=== PATIENT | male | born 1960 | race Caucasian/White ===

== ENCOUNTER 2018-01-11 09:11 | Outpatient (CLI) | payer BC, SELFPAY | END 2018-01-11 09:31 | PROVIDERS: PCP Family Medicine; Referring Provider Internal Medicine Interventional Cardiology; Visit Provider Internal Medicine Interventional Cardiology | DX: I48.91 Unspecified atrial fibrillation (principal) | CPT/HCPCS: 93005; 93010 ==

== ENCOUNTER 2018-03-12 10:54 | Outpatient (CLI) | payer BC, SELFPAY ==
--- NOTE | 2018-03-12 08:00 | DIABASSESS_ITS ---
DESCRIPTION/ASSESSMENT: Mr. Langford presents with referral for insulin instruction. His A1c has increased to 10.1 and has a goal of decreasing to 8. Mr. Langford states he does not want to initiate insulin today and he knows he can get his blood sugars down with lifestyle modifications and would like support for this today. Food Guidelines - Mr. Langford states he has cut his carbohydrate and sweets. He has cheese omelet for breakfast; 2 yogurt for lunch; regular supper with minimal carbohydrates. He may snack on yogurt, fruit and handful of nuts.His is supportive of his efforts and helps him with food choices. Physical Activity - Veto has started using the treadmill 4 days a week. He experiences leg weakness, especially during chores. He now receives help from his son, but does participate twice a day. Medication - Veto continues with Metformin. Monitoring - Veto has just started monitoring his blood sugars a couple times a day. Today fasting blood sugar 151mg/dl; 1 hour after 2 yogurts 210mg/dl. Risks/Related health history - he self reports afib but states his blood pressure is pretty good at 120/85-90. INTERVENTION: DSME is provided in the following AADE 7 areas based on patients interest and assessment of needs: Food Guidelines - reviewed diabetes food guide focused on sources, portions, distribution of carbohydrate as well as glycemic index considerations of some foods. Briefly reviewed mindful eating concepts. Physical Activity - encouraged treadmill work but to moderate if he feels queezy during it and if it increases his pain during chores. Encouraged him to break up the treadmill routine doing some in the evening as well. Medication - he declines insulin instruction at this time. Reviewed other medications available and encouraged him to be in touch if blood sugars are not mostly less than 200 throughout the day to review insulin initiation again. Monitoring - He will continue monitoring in relation to his food to assess impact of food on blood sugar. ACTION PLAN: Continue monitoring carbohydrate; distribute evenly and increase lower glycemic foods Monitor blood sugars to consistently be less than 180mg/dl and less than 130mg/dl before breakfast Distribute physical activity evenly through day to minimize leg weakness He will return in 4 weeks prior to his next Provider visit. Individual DSME/T ___0_ units billed TIME IN: 0900 OUT: 924 No DM group education series being offered at this time.
== END 2018-03-12 11:14 ==
PROVIDERS: PCP Family Medicine; Visit Provider Dietitian, Registered
DX: E11.9 Type 2 diabetes mellitus without complications (principal); Z79.4 Long term (current) use of insulin; Z71.3 Dietary counseling and surveillance

== ENCOUNTER 2018-04-01 10:34 | Outpatient (REF) | payer BC, SELFPAY ==
[2018-04-01 13:13] LABS: TSH (W/Ref FT4) 2.99 uIU/mL (0.358-3.74)
== END 2018-04-01 10:54 ==
LOC: LBN 10:34
PROVIDERS: PCP Family Medicine; Visit Provider Family Medicine
DX: I48.0 Paroxysmal atrial fibrillation (principal)
CPT/HCPCS: 84443

== ENCOUNTER 2018-04-09 00:11 | Outpatient (CLI) | payer BC, SELFPAY ==
--- NOTE | 2018-04-09 12:00 | DI.US_ITS ---
SYMPTOMS/DIAGNOSIS: PRESYNCOPE, R55 BILATERAL DUPLEX CAROTID ULTRASOUND: Duplex evaluation of the carotid circulation was performed according to the usual protocol. There is mild visible atheromatous plaque formation in the carotid bifurcations bilaterally. Flow velocities in common, internal and external carotid arteries are within normal limits bilaterally. There is bilateral antegrade vertebral flow. CONCLUSION: No evidence of a hemodynamically significant carotid stenosis.
--- NOTE | 2018-04-09 12:10 | MERGE_ITS ---
*[facility]* *[facility]* [address] [place] [address] Date of study: 04/09/2018 Transthoracic Echocardiography M-mode, complete 2D, complete spectral Doppler, and color Doppler *STUDY CONCLUSIONS* Impressions: The patient was in atrial fibrillation throughout study. This rhythm can interfere with accurate global and segmental wall motion analysis. Summary: 1. Left ventricle: The cavity size was normal. Wall thickness was increased in a pattern of mild LVH. Systolic function was mildly reduced. The estimated ejection fraction was 45-50%. Mild diffuse hypokinesis. 2. Right ventricle: The cavity size was at the upper limits of normal. Systolic function was mildly reduced. 3. Left atrium: The atrium was mildly dilated. 4. Aortic valve: Trileaflet; mildly thickened, moderately calcified leaflets. Valve mobility was restricted. Transvalvular velocity was increased. There was mild to moderate stenosis. Peak velocity (S): 2.1m/sec. VTI ratio of LVOT to aortic valve: 0.41. 5. Pulmonary arteries: Pulmonary systolic pressure was increased, in the range of 35mm Hg to 40mm Hg. 6. Inferior vena cava: The vessel was patent and normal in size. The respirophasic diameter changes were in the normal range (greater than or equal to 50%), consistent with normal central venous pressure. *PATIENT PRESENTATION* Height: 182.9cm ((72in) ) S/D Pressure: 131 / 79 Weight: 142.9kg ((314.3lb) ) BSA: 2.76m^2 Test start time: 12:20 PM. Test stop time: 01:30 PM. PERFORMING Unknown PERFORMING [facility] Rhona Young RT RobbyR)(CT), [facility] ORDERING Se Alva REFERRING Se Alva *PROCEDURE DATA* Procedure information: The patient was identified by two identifiers. This study was interpreted by [facility]. Pertinent images and digital data are archived for permanent storage and are available for subsequent review. Comparison was made to the study of 12/29/2014. Study status: Routine. Transthoracic echocardiography. M-mode, complete 2D, complete spectral Doppler, and color Doppler. A Transthoracic Echocardiogram was performed. Scanning was performed from the parasternal, apical, subcostal, and suprasternal notch acoustic windows. Images were obtained using an [id number] cardiac ultrasound machine. Image quality was adequate. Study completion: The patient tolerated the procedure well. There were no complications. History: PMH: Near syncope and collapse. *CARDIAC ANATOMY* Left ventricle: The cavity size was normal. Wall thickness was increased in a pattern of mild LVH. Systolic function was mildly reduced. The estimated ejection fraction was 45-50%. Mild diffuse hypokinesis. Aortic valve: Trileaflet; mildly thickened, moderately calcified leaflets. Valve mobility was restricted. Doppler: Transvalvular velocity was increased. There was mild to moderate stenosis. There was no significant regurgitation. VTI ratio of LVOT to aortic valve: 0.41. Valve area (VTI): 1.2cm^2. Indexed valve area (VTI): 0.4cm^2/m^2. Peak velocity ratio of LVOT to aortic valve: 0.4. Valve area (Vmax): 1.2cm^2. Indexed valve area (Vmax): 0.4cm^2/m^2. Mean velocity ratio of LVOT to aortic valve: 0.41. Valve area (Vmean): 1.2cm^2. Indexed valve area (Vmean): 0.4cm^2/m^2. Mean gradient (S): 10.2mm Hg. Peak gradient (S): 17.3mm Hg. Aorta: Aortic root: The aortic root was normal in size. Ascending aorta: The ascending aorta was normal in size. Mitral valve: Mildly thickened leaflets. Mobility was not restricted. Doppler: Transvalvular velocity was within the normal range. There was no evidence for stenosis. There was trivial regurgitation. Valve area by pressure half-time: 6.3cm^2. Indexed valve area by pressure half-time: 2.3cm^2/m^2. Peak gradient (D): 3.8mm Hg. Left atrium: The atrium was mildly dilated. Right ventricle: The cavity size was at the upper limits of normal. Systolic function was mildly reduced. Pulmonic valve: The pulmonary valve appears to be grossly normal. Doppler: Transvalvular velocity was within the normal range. There was no evidence for stenosis. There was no significant regurgitation. Tricuspid valve: Structurally normal valve. Doppler: Transvalvular velocity was within the normal range. There was no evidence for stenosis. There was mild regurgitation. Pulmonary artery: The main pulmonary artery was normal-sized. Pulmonary systolic pressure was increased, in the range of 35mm Hg to 40mm Hg. Right atrium: The atrium was dilated. Pericardium: There was no significant pericardial effusion. Systemic veins: Inferior vena cava: Well visualized. The vessel was patent and normal in size. The respirophasic diameter changes were in the normal range (greater than or equal to 50%), consistent with normal central venous pressure. Baseline ECG: Atrial fibrillation. Measurements Left ventricle Value Reference LV ID, ED, PLAX 5.6 cm 3.5 - 6.0 LV ID, ES, PLAX 3.9 cm 2.1 - 4.0 LV PW thickness, ED, PLAX 0.9 cm LV end-diastolic volume, 1-p A2C 95 ml LV ejection fraction, 1-p A2C 44 % LV end-diastolic volume, 1-p A4C 134 ml LV ejection fraction, 1-p A4C 48 % LV e', lateral 0.148 m/sec LV E/e', lateral 7 LV e', medial 0.116 m/sec LV E/e', medial 8 LV e', average 0.132 m/sec LV E/e', average 7 Ventricular septum Value Reference IVS thickness, ED, PLAX 1.1 cm LVOT Value Reference LVOT ID, A-P 2.0 cm LVOT area 3 cm^2 LVOT peak velocity, S 0.83 m/sec LVOT mean velocity, S 0.62 m/sec LVOT VTI, S 15.0 cm LVOT peak gradient, S 2.8 mm Hg LVOT mean gradient, S 1.7 mm Hg Stroke volume (SV), LVOT DP 45 ml Stroke index (SV/bsa), LVOT DP 16 ml/m^2 Aortic valve Value Reference Aortic valve peak velocity, S 2.1 m/sec Aortic valve mean velocity, S 1.53 m/sec Aortic valve VTI, S 37.0 cm Aortic mean gradient, S 10.2 mm Hg Aortic peak gradient, S 17.3 mm Hg VTI ratio, LVOT/AV 0.41 Aortic valve area, VTI 1.2 cm^2 Velocity ratio, peak, LVOT/AV 0.4 Aortic valve area, peak velocity 1.2 cm^2 Velocity ratio, mean, LVOT/AV 0.41 Aortic valve area, mean velocity 1.2 cm^2 Aortic valve area/bsa, mean velocity 0.4 cm^2/m^2 Aorta Value Reference Aortic root ID, ED 3.6 cm Ascending aorta ID, A-P, S 3.6 cm Left atrium Value Reference LA ID, A-P, ES 4.6 cm LA ID/bsa, A-P 1.7 cm/m^2 <=2.2 LA area, ES, A4C (H) 24.7 cm^2 8.8 - 23.4 LA area, ES, A2C 23 cm^2 LA volume/bsa, ES, 1-p A4C 33 ml/m^2 LA volume, ES, 2-p 72 ml LA volume/bsa, ES, 2-p 26 ml/m^2 LA/aortic root ratio 1.3 Mitral valve Value Reference Mitral E-wave peak velocity 0.97 m/sec Mitral deceleration time (L) 120 ms 150 - 230 Mitral pressure half-time 35 ms Mitral peak gradient, D 3.8 mm Hg Mitral valve area, PHT, DP 6.3 cm^2 Tricuspid valve Value Reference Tricuspid regurg peak velocity 2.9 m/sec Tricuspid peak RV-RA gradient 33.7 mm Hg Right atrium Value Reference RA area, ES, A4C (H) 20.8 cm^2 8.3 - 19.5 Legend: (L) and (H) ernetta values outside specified reference range. I have personally reviewed the images and have reviewed and edited the reported findings. Electronically signed by Jose Manuel Reyez 04/09/2018 14:55
== END 2018-04-09 00:31 ==
PROVIDERS: PCP Family Medicine; Visit Provider Family Medicine
DX: I48.0 Paroxysmal atrial fibrillation (principal); R55 Syncope and collapse; I35.0 Nonrheumatic aortic (valve) stenosis; I10 Essential (primary) hypertension
CPT/HCPCS: 93306; 93880

== ENCOUNTER 2018-04-09 01:03 | Outpatient (CLI) | payer BC, SELFPAY ==
--- NOTE | 2018-04-29 09:43 | ZIOP_ITS ---
ZIO PATCH CARDIAC MONITORING DEVICE DATE OF DICTATION April 29, 2018 INDICATION Syncope. The patient was in atrial fibrillation throughout the study. Heart rate ranging from 33 to 153 beats per minute with an average heart rate of 103 beats per minute. 1 short burst of nonsustained VT lasting 8 beats with a max heart rate of 222 beats per minute. The patient had 2 pauses, the longest lasting 5.6 seconds, which occurred at 11:27 p.m. on the April. The second pause lasting 3.6 seconds on the April at 12:58 a.m. Otherwise rare isolated ventricular ectopy. 3 patient trigged events, all correspond to atrial fibrillation with RVR. No diary entries. The patient in atrial fibrillation throughout study; with 2 significant pauses, the longest 5.6 seconds. Jose Manuel Reyez M.D. ANUJ/kristina T - 04/29/2018
== END 2018-04-09 01:23 ==
PROVIDERS: PCP Family Medicine; Visit Provider Family Medicine
DX: R55 Syncope and collapse (principal); I48.91 Unspecified atrial fibrillation; I47.2 Ventricular tachycardia
CPT/HCPCS: 93225

== ENCOUNTER 2018-04-16 08:30 | Outpatient (CLI) | payer BC, SELFPAY ==
--- NOTE | 2018-04-16 08:05 | DIABASSESS_ITS ---
DESCRIPTION/ASSESSMENT: Veto Langford presents for diabetes self management followup to initiate insulin. He was hoping to prevent this with lifestyle changes, however his A1c actually increased since his previous visit. He did not do additional testing of blood sugars or document his food. Veto states he has lost 8 pounds over the past month by cutting back on his portions at meals and given up his PBJ sandwich at bedtime. He is using the treadmill in the morning but for less time due to pain with walking during chores in the AM. States his afternoon blood sugar before supper was 165 today. INTERVENTION: Discussed further lifestyle ideas for mixing carbohydrate with protein for breakfast and mid=day. Instructed in use of Lantus Solostar insulin. He is instructed to begin at 40units. He is able to return demonstration and inject insulin pen into pillow per protocol. Reviewed action and storage of insulin, injections sights, disposal of needles, hypoglycemia symptoms and treatment. He declines injecting himself with normal saline. Discussed dosage. Concern if he is not comfortable with the dose of 40 he could begin with 20 and take 40 in a day or two depending on how his fasting blood sugar responds. ACTION PLAN: Inject insulin tonight per protocol. Add treadmill in the evening when he is bored and wanting to eat We will be in touch by telephone for follow up. Individual DSME/T __0__ units billed TIME IN: 804 OUT: 824 No DM group education series being offered at this time.
== END 2018-04-16 08:50 ==
PROVIDERS: PCP Family Medicine; Visit Provider Dietitian, Registered
DX: E11.9 Type 2 diabetes mellitus without complications (principal); Z79.4 Long term (current) use of insulin; Z71.3 Dietary counseling and surveillance

== ENCOUNTER 2018-04-26 10:14 | Outpatient (CLI) | payer BC, SELFPAY | END 2018-04-26 10:34 | PROVIDERS: PCP Family Medicine; Visit Provider Internal Medicine Interventional Cardiology | DX: I48.1 Persistent atrial fibrillation (principal); I42.9 Cardiomyopathy, unspecified; I10 Essential (primary) hypertension | CPT/HCPCS: 93005; 93010 ==

== ENCOUNTER 2018-06-22 19:33 | Emergency (ER) | payer BC, SELFPAY ==
[2018-06-22 19:37] VITALS: BP 148/125; PULSE 112; RESP 22; TEMP 36.2; O2SAT 100
[2018-06-22] MEDS: Acetaminophen 500 MG TAB 1000 MG PO (19:54)
[2018-06-22] MEDS: diazePAM 5 MG TAB PO (19:55)
[2018-06-22] MEDS: HYDROmorphone 4 MG TAB PO (19:55)
--- NOTE | 2018-06-22 20:04 | ED.GENADUL_ITS ---
Discharge Plan Disposition Patient Disposition: HOME Discharge Details Chief Complaint: Nk/Back Pain Clinical Impression: Low back pain Primary Care Provider: Se Alva ED Provider: Jah Rodriguez Home Meds and New Rx's Prescriptions: New hydromorphone 2 mg tablet 2 - 4 mg PO Q4H PRN (Reason: pain) Qty: 10 RF: 0 No Action metoprolol succinate 25 mg tablet extended release 24 hr 50 mg PO DAILY RF: 0 Lantus Solostar U-100 Insulin 100 unit/mL (3 mL) insulin pen 44 unit SC DAILY Qty: 15 RF: 3 FreeStyle Lite Strips strip 1 ea Miscellaneous DAILY Qty: 90 RF: 3 lancets [FreeStyle Lancets] 1 EACH misc 1 ea Miscellaneous DAILY Qty: 90 RF: 3 multivitamin [Daily Multi-Vitamin] 1 EACH tablet 1 ea PO DAILY RF: 0 albuterol sulfate [ProAir HFA] 8.5 GM HFA aerosol inhaler 1 - 2 puff Inhalation Q4-6H PRN Qty: 1 RF: 0 lisinopril-hydrochlorothiazide [Zestoretic] 1 EACH tablet 1 tab PO DAILY Qty: 90 RF: 3 metformin 1,000 mg tablet 1,000 mg PO BID MDD 2,000 mg Qty: 180 RF: 3 pen needle, diabetic [Comfort EZ Pen [place]] 32 gauge x 5/32 needle .ROUTE .MEDSUPPLY Qty: 100 RF: 3 Eliquis 5 mg tablet 5 mg PO BID Qty: 14 RF: 0 atorvastatin [Lipitor] 40 mg tablet 40 mg PO DAILY Qty: 90 RF: 3 gabapentin 300 mg Capsule 300 mg PO TID PRNRF: 0 Discharge Instructions Instructions: Low Back Strain (ED) Additional Instructions: 1. Drink plenty of fluids. 2. Continue all medications as prescribed. Take gabapentin on a regular basis as prescribed. 3. Acetaminophen 1000mg every 4 hours (up to 5 time a day) as needed for fever or pain. Hydromorphone 2-4 mg every 4 hours as needed for pain. 4. Valium 5 mg every 6 hours as needed for pain/muscle spasm. Return to the Emergency Department (ED) if your condition worsens, does not improve as expected, or for ANY other concerns. Specifically, return if you have new or uncontrolled pain, worsening fever, difficulty breathing, vomiting, or are unable to drink fluids. Discharge Data Discharge Date/Time-TO BE ENTERED AT DEPARTURE: 06/22/18 20:34 Medical Decision Making 58-year-old gent with a history of recurrent back pain as well as atrial fibrillation (on Eliquis) who presents with recurrent right lower back pain similar nature to previous episodes. He has previously been managed with opiates and today's opinions for short course with good outcome. He also was followed up at the pain clinic in [place] last year and had a good outcome with gabapentin. Exam significant for local right SI joint tenderness which reproduces subjective pain. No abdominal pain/flank pain, or evidence of neurovascular compromise. Treated in the ED with acetaminophen, diazepam, and hydromorphone. Discharged with limited prescriptions for the latter 2. Patient will also resume his gabapentin on a regular basis and was discharged with plan for activity as tolerated, ice, analgesia, and follow-up as needed. Pt evaluated immediately prior to discharge with improved symptoms, normal vital signs, and tolerating PO. The patient feels appropriate for discharge home. Discussed clinical/diagnostic findings. Discharged with a clear plan for outpatient follow up. Given usual and customary return instructions prior to discharge. Medical Records Medical records reviewed: Yes I reviewed the patient's medical records. HPI 58-year-old with a past medical history which includes chronic recurrent back pain, PAF (recent ablation and chronically on Eliquis), hypertension, DJD. She most recently had a flare of right lower back pain last year and was evaluated at the [facility] [place] where he had successful management with gabapentin. He has previously presented here with flares of severe back pain which have been managed with Valium and opiates for short course. Presents with accelerating right SI joint/lower back pain similar nature to previous episodes. He noted mild discomfort yesterday and then this morning performed daily chores without difficulty. However, towards the end of the day, he had more severe pain in his lower back which was refractory to his usual analgesic, acetaminophen. He took 1 gabapentin prior to presenting here with significant discomfort. His pain is subjectively similar to previous episodes, localized to his right lower back and radiating to his distal gluteus and to his proximal lateral mid back. He otherwise denies any recent trauma, fever/chills, chest pain, palpitations, abdominal pain. He has had no change in bowel habits, melena, hematochezia. He denies any urinary symptoms. He has had no atypical extremity pain or swelling. General Date/Time Provider Initiated Documentation: 06/22/18 19:42 . Related Data Home Medications Medication Instructions Recorded Confirmed lancets [FreeStyle Lancets] #90 ea 12/19/14 04/26/18 multivitamin [Daily Multi-Vitamin] 1 ea PO DAILY tab 01/15/16 06/22/18 albuterol sulfate [ProAir HFA] 1 - 2 puff INHALATION Q4-6H PRN #1 05/23/16 06/22/18 inhaler lisinopril-hydrochlorothiazide 1 tab PO DAILY #90 tab-cap 09/10/17 06/22/18 [Zestoretic 20-12.5 Mg Tablet] metoprolol succinate ER 25 mg 50 mg PO DAILY tab 01/11/18 06/22/18 tablet,extended release 24 hr metformin 1,000 mg tablet 1,000 mg PO BID #180 tab MDD 2,000 01/18/18 06/22/18 mg blood sugar diagnostic strips #90 strip 02/02/18 04/26/18 insulin glargine (U-100) 100 44 unit SC DAILY #15 ml 02/02/18 06/22/18 unit/mL (3 mL) subcutaneous pen pen needle, diabetic 32 gauge x #100 each 04/16/18 04/26/18 apixaban 5 mg tablet 5 mg PO BID #14 tab 05/20/18 06/22/18 atorvastatin 40 mg tablet 40 mg PO DAILY #90 tab-cap 06/14/18 06/22/18 gabapentin 300 mg PO TID PRN 06/22/18 06/22/18 hydromorphone 2 - 4 mg PO Q4H PRN #10 tab 06/22/18 Previous Rx's Medication Instructions Recorded lisinopril-hydrochlorothiazide 1 tab PO DAILY #90 tab-cap 09/10/17 [Zestoretic 20-12.5 Mg Tablet] metformin 1,000 mg tablet 1,000 mg PO BID #180 tab MDD 2,000 01/18/18 mg blood sugar diagnostic strips #90 strip 02/02/18 insulin glargine (U-100) 100 44 unit SC DAILY #15 ml 02/02/18 unit/mL (3 mL) subcutaneous pen pen needle, diabetic 32 gauge x #100 each 04/16/18 apixaban 5 mg tablet 5 mg PO BID #14 tab 05/20/18 atorvastatin 40 mg tablet 40 mg PO DAILY #90 tab-cap 06/14/18 hydromorphone 2 - 4 mg PO Q4H PRN #10 tab 06/22/18 Allergies Allergy/AdvReac Type Severity Reaction Status Date / Time latex Allergy Intermediate RASH, ITCH Verified 06/22/18 19:41 General Stated Complaint: Nk/Back Pain BAMBI: 3 Review of Systems Review of Systems All systems are reviewed and are unremarkable except as noted in HPI and below: CONSTITUTIONAL: no fevers/chills, no weakness or change in appetite EYES: no change in vision HEENT: no throat pain or difficulty swallowing; no neck pain CARDIOVASCULAR: no chest pain, palpitations, leg swelling, or diaphoresis RESPIRATORY: no cough, dyspnea, wheezing GASTROINTESTINAL: no abdominal pain, melena, nausea/emesis GENITOURINARY: no dysuria, flank pain, MUSCULOSKELETAL: Right lower back pain radiating towards his distal gluteal region and right lateral mid back, myalgias, arthralgias INTEGUMENTARY: no rash, no wounds NEUROLOGIC: no headache, focal weakness, difficulty with speech, numbness PSYCHIATRIC: no confusion, no anxiety HEME: no easy bruising or bleeding ALLERGIC: no urticaria PFSH Medical History Sciatica (Chronic 07/15/11) Paroxysmal atrial fibrillation (Chronic) Leukocytosis, unspecified (Chronic 03/20/15) Hyperlipidemia (Chronic 12/07/02) Essential hypertension (Chronic 07/15/11) Diabetes mellitus with neurological manifestations, uncontrolled (Chronic) 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 Brother No problems noted. Brother No problems noted. Social History Smoking/Tobacco Use Status: Former Tobacco Use Alcohol Intake: never Drug use: Never Housing: house What type of physical activity do you participate in: walking and other Details: doing chores again Frequency: daily Working smoke detector in home: Yes Fire extinguisher in home: Yes Carbon monox detector in home: Yes Do you feel safe in your relationship?: Yes Exam Narrative Exam Narrative: Nursing note and vital signs have been reviewed and noted. GENERAL: alert, active, no acute distress, well -hydrated, well-nourished HEENT: atraumatic/normocephalic, PERRLA, EOMI, conjunctiva clear, external ears/canals normal, nasal mucosa normal NECK: supple, full range of motion CARDIOVASCULAR: nl pulses, no edema PULMONARY: nl effort, no audible wheezing or stridor ABDOMEN: non-distended EXTREMITY: normal muscle tone, all joints with FROM, no deformity BACK: Tenderness at the right SI joint which reproduces subjective pain. Mild soft tissue tenderness. NUERO: normal mentation, moving all extremities, normal stance and gait, PSYCH: alert and oriented SKIN: no new rashes or lesions Course Vital Signs Temperature 97.2 F L 06/22/18 19:37 Pulse 112 H 06/22/18 19:37 Respiratory Rate 22 06/22/18 19:37 Blood Pressure 148/125 H 06/22/18 19:37 Pulse Oximetry 100 06/22/18 19:37 Temperature 97.2 F L 06/22/18 19:37 Temperature Source Skin 06/22/18 19:37 Pulse 112 H 06/22/18 19:37 Respiratory Rate 22 06/22/18 19:37 Respiratory Effort Non-Labored 06/22/18 19:44 Blood Pressure 148/125 H 06/22/18 19:37 Blood Pressure Position Sitting 06/22/18 19:37 Pulse Oximetry 100 06/22/18 19:37 Oxygen Delivery Method Room Air 06/22/18 19:37 Oxygen Flow Rate 0 06/22/18 19:37 Pain Level 8 06/22/18 19:44
[2018-06-22] MEDS: HYDROmorphone 4 MG TAB 8 MG PO (20:28)
[2018-06-22 20:29] VITALS: BP 150/87; PULSE 73; RESP 20; TEMP 37.1; O2SAT 96
[2018-06-22] MEDS: diazePAM 5 MG TAB 20 MG PO (20:29)
== END 2018-06-22 20:34 | disposition home or self-care (01) ==
PROVIDERS: Emergency Provider Emergency Medicine; PCP Family Medicine
DX: M54.5 Low back pain (principal)
CPT/HCPCS: 99283

== ENCOUNTER 2018-08-03 11:32 | Outpatient (REF) | payer BC, SELFPAY ==
[2018-08-03 19:19] LABS: Abs Immature Grans 0.04 k/cumm (0.0-0.09); Absolute Basophil Count 0.03 k/cumm (0.0-0.2); Absolute Lymphocyte Count 2.43 k/cumm (1.2-3.4); Absolute Monocyte Count 0.93 k/cumm (0.11-0.7); Absolute Neutrophil Count 7.41 k/cumm (1.2-6.7); Basophils % 0.3; Eosinophils % 1.8; HCT 42.8 % (40.0-50.0); HGB 14.5 g/dL (13.5-17.5); Immature Grans % 0.4; Mean Corp. HGB Concentration 33.9 g/dL (32.0-36.0); Mean Corpuscular Hemoglobin 29.7 pg (27.0-33.0); Mean Corpuscular Volume 87.5 fL (80-95); Monocytes % 8.4; Neutrophils % 67.1; Platelet Count 291 x1000/uL (130-400); RBC 4.89 m/cumm (4.50-6.00); RBC Distribution Width 12.9 % (11.8-14.1); White Blood Cell Count 11.04 k/cumm (4.4-10.8)
[2018-08-03 19:35] LABS: Anion Gap 9.5 mmol/L (3-11); BUN 14 mg/dL (7-18); CO2 25.5 mmol/L (21.0-32.0); CREATININE 0.78 mg/dL (0.70-1.30); Calcium 8.7 mg/dL (8.5-10.1); Chloride 100 mmol/L (98-107); Glucose 175 mg/dL (70-100); Potassium 4.6 mmol/L (3.5-5.1); Sodium 135 mmol/L (136-145)
== END 2018-08-03 11:52 ==
LOC: LBN 11:32
PROVIDERS: PCP Family Medicine; Visit Provider Family Medicine
DX: R31.9 Hematuria, unspecified (principal)
CPT/HCPCS: 80048; 85025

== ENCOUNTER 2018-08-06 16:27 | Outpatient (CLI) | payer BC, SELFPAY ==
[2018-08-06 17:10] LABS: Bilirubin Negative (Negative); Blood Negative (Negative); Clarity Clear; Glucose 250 mg/dL (Negative); Ketones Trace mg/dL (Negative); Leukocyte Esterase Negative (Negative); Nitrite Negative (Negative); Specific Gravity 1.025 (1.005-1.025)
== END 2018-08-06 16:47 ==
PROVIDERS: PCP Family Medicine; Visit Provider Family Medicine
DX: R31.9 Hematuria, unspecified (principal)
CPT/HCPCS: 81003

== ENCOUNTER 2019-03-03 09:37 | Outpatient (CLI) | payer BC, SELFPAY | END 2019-03-03 09:57 | PROVIDERS: PCP Family Medicine; Visit Provider Urology | DX: I48.91 Unspecified atrial fibrillation (principal); I10 Essential (primary) hypertension; E78.5 Hyperlipidemia, unspecified | CPT/HCPCS: 93005; 93010 ==

== ENCOUNTER 2019-12-26 18:46 | Emergency (ER) | payer BC, SELFPAY ==
--- NOTE | 2019-12-26 18:45 | DI.RAD_ITS ---
EXAM: XR WRIST RT COMPL NAVICULAR CLINICAL HISTORY: JENNIFER. TECHNIQUE: 2D digital imaging was performed. COMPARISON: CR,XR XR HAND RT COMPLETE from 12/26/2019 FINDINGS: BONES: No acute fracture is present. No bony destructive lesion is seen. There is mild irregularity a t the articular surface of the distal radius which could be secondary to an old fracture. JOINTS: There is mild widening of the scapholunate distance which is consistent with scapholunate lig ament disruption which could be acute or old. There are degenerative changes between the capitate an d scaphoid. Degenerative changes are also seen at the scaphoid trapezium and trapezium 1st metacarpa l joint as well as at the radial styloid. Chondrocalcinosis is faintly seen. There is soft tissue s welling. IMPRESSION: Degenerative changes. No acute abnormality. DATA REPOSITORY: RADIATION DOSE DELIVERED:
--- NOTE | 2019-12-26 18:45 | DI.RAD_ITS ---
EXAM: XR HAND RT COMPLETE CLINICAL HISTORY: JENNIFER TECHNIQUE: 2D digital imaging was performed. COMPARISON: No exams were available for comparison FINDINGS: No fracture or dislocation is seen. There are degenerative changes greatest of the interphalangeal j oints of the fingers. IMPRESSION: Degenerative changes. No acute abnormality.
--- NOTE | 2019-12-26 18:47 | W.ED.GENAD ---
Discharge Plan Disposition Patient Disposition: HOME Condition: Good Discharge Details Clinical Impression: Acute wrist pain Primary Care Provider: Se Alva ED Provider: Nafisa Rangel Home Meds and New Rx's Prescriptions: Continued (DME) blood-glucose meter misc See Dose Instructions .ROUTE .MEDSUPPLY Qty: 1 RF: 0 (DME) FreeStyle Lite Strips Strip 1 ea Miscellaneous DAILY Qty: 180 RF: 3 (DME) lancets [FreeStyle Lancets] 28 gauge misc 1 ea Miscellaneous DAILY Qty: 180 RF: 3 metformin 1,000 mg tablet 1,000 mg PO BID RF: 0 metoprolol succinate 50 mg tablet extended release 24 hr 100 mg PO DAILY Qty: 90 RF: 3 albuterol sulfate [ProAir HFA] 90 mcg/actuation HFA aerosol inhaler 2 puff Inhalation Q4H PRN Qty: 8 RF: 1 multivitamin [Daily Multi-Vitamin] 1 EACH tablet 1 ea PO DAILY RF: 0 lisinopril-hydrochlorothiazide [Zestoretic] 20-12.5 mg tablet 1 tab PO DAILY Qty: 90 RF: 3 Eliquis 5 mg tablet 5 mg PO BID Qty: 180 RF: 3 Hold Instructions: Home Medication placed on hold at Doctor's office semaglutide 14 mg tablet 14 mg PO DAILY Qty: 90 RF: 3 Farxiga 10 mg tablet 10 mg PO DAILY Qty: 90 RF: 3 Lantus Solostar U-100 Insulin 100 unit/mL (3 mL) insulin pen 50 unit SC DAILY Qty: 15 RF: 11 (DME) pen needle, diabetic [Comfort EZ Pen Sebago] 32 gauge x 5/32 needle See Dose Instructions .ROUTE .MEDSUPPLY Qty: 100 RF: 3 atorvastatin [Lipitor] 40 mg tablet 40 mg PO DAILY Qty: 90 RF: 3 gabapentin 300 mg Capsule 300 mg PO TID PRNRF: 0 Discharge Instructions Instructions: Scaphoid Fracture (ED) Additional Instructions: As we discussed, you do not have any acute fractures on your x-ray today. However, I am concerned for potential scaphoid injury. This means that we treat you like you have a fracture. Please keep the splint on until reevaluated by orthopedics. Please call orthopedics tomorrow to schedule follow-up appointment. Please encourage rest, ice, elevation. May use Tylenol to help with discomfort. Please avoid activities that cause increased pain. No heavy lifting with his hand. If you develop any new or worsening symptoms please seek care urgently once again. Stand Alone Forms: Work Release Referrals: Gutierrez Fontana MD [ [facility] STAFF PHYSICIAN] - Medical Decision Making Patient is a pleasant sqacj-mywv-viurzhuq 59-year-old male presents today with chief complaint of right wrist pain. He reports that yesterday while carrying a ladder he tripped and fell over granite steps. Fell striking the right hand. Is endorsing pain primarily on the distal radius extending into the hand. He endorses some tingling. Suffered abrasion to the lateral aspect of the right knee. Denies any pain over this area. Last tetanus shot was 10 years ago. On exam, patient resting comfortably. He was tachycardic when he first came in but this did seem to downtrend at the time of exam. He is swollen over the distal radius. He has pain over the anatomical snuffbox as well as with axial loading of the thumb. Sensation is intact. He has 2+ distal pulses, brisk capillary refill. Exam of the right knee shows abrasion laterally. No active bleeding. No deep wounds. Full range of motion ligaments intact. Will update tetanus. Obtain imaging of the right wrist with navicular view. Will give Tylenol to help discomfort. FINDINGS: Bones/joints: Moderate osteoarthritic changes are seen within the triscaphe and thumb CMC joints. Zsww-cj-[id number] osteoarthritic changes are seen within the MCP and IP joint of the thumb, 2nd and 3rd DIP joints, and 5th PIP joint. Irregularity is seen surrounding the PIP joint of the 5th finger, suggesting sequela prior injury. No evidence for acute fracture or subluxation. Hook osteophytes are seen within the 2nd and 3rd metacarpal heads, which can be seen with CPPD. Soft tissues: Normal. IMPRESSION: Osteoarthritic changes are seen throughout the wrist and hand without evidence for acute fracture or subluxation. FINDINGS: Bones/joints: Moderate osteoarthritic changes are seen within the triscaphe and thumb CMC joints. Ewlq-ge-yrfpqgyf osteoarthritic changes are seen within the MCP and IP joint of the thumb, 2nd and 3rd DIP joints, and 5th PIP joint. Irregularity is seen surrounding the PIP joint of the 5th finger, suggesting sequela prior injury. No evidence for acute fracture or subluxation. Hook osteophytes are seen within the 2nd and 3rd metacarpal heads, which can be seen with CPPD. Soft tissues: Normal. IMPRESSION: Osteoarthritic changes are seen throughout the wrist and hand without evidence for acute fracture or subluxation. I discussed these findings with the patient. Despite the lack of abnormality on x-ray, we discussed the risk associate with scaphoid injury. Patient will be fitted with a thumb spica. Encouraged rest, ice, elevation. Tylenol as needed for discomfort. Advised follow-up with orthopedics for repeat exam in 1 to 2 weeks. Return precautions were discussed. We discussed activities that he should avoid. All his questions and concerns were addressed and he is in agreement with plan. HPI General Mode of arrival: ambulatory. Date/Time Provider Initiated Documentation: 12/26/19 18:47. Limitations to Documentation: no limitations. Information obtained by: patient and RN notes reviewed. History of Present Illness 59 year old M presents to the emergency department with the chief complaint of right wrist pain, described as severe, with intensity rated at 9. Quality is described as sharp, and is localized to the right and upper extremity. Patient reports no radiation. Patient started experiencing this day(s) (1) and it has been constant. Immobilization improves symptom(s), Movement worsens symptoms . Patient notes no other symptoms.. Patient did receive the following treatments prior to arrival, none Related Data Home Medications Medication Instructions Recorded Confirmed multivitamin [Daily Multi-Vitamin] 1 ea PO DAILY tab 01/15/16 12/26/19 gabapentin 300 mg PO TID PRN 06/22/18 12/26/19 blood-glucose meter #1 each 07/19/18 12/26/19 blood sugar diagnostic #180 strip 11/02/18 12/26/19 lancets 28 gauge #180 each 11/02/18 12/26/19 lisinopril 20 1 tab PO DAILY #90 tab-cap 12/02/18 12/26/19 mg-hydrochlorothiazide 12.5 mg tablet albuterol sulfate 90 mcg/actuation 2 puff INHALATION Q4H PRN #8 gm 01/21/19 12/26/19 aerosol inhaler metformin 1,000 mg tablet 1,000 mg PO BID tab 03/03/19 12/26/19 metoprolol succinate 50 mg 100 mg PO DAILY #90 tab 03/03/19 12/26/19 tablet,extended release 24 hr apixaban 5 mg tablet 5 mg PO BID #180 tab 03/14/19 12/26/19 semaglutide 14 mg tablet 14 mg PO DAILY #90 tab-cap 05/23/19 12/26/19 dapagliflozin 10 mg tablet 10 mg PO DAILY #90 tab 07/07/19 12/26/19 insulin glargine 100 unit/mL (3 50 unit SC DAILY #15 ml 07/22/19 12/26/19 mL) subcutaneous pen pen needle, diabetic 32 gauge x #100 each 11/11/19 12/26/19 atorvastatin 40 mg tablet 40 mg PO DAILY #90 tab-cap 12/19/19 12/26/19 Previous Rx's Medication Instructions Recorded blood-glucose meter #1 each 07/19/18 blood sugar diagnostic #180 strip 11/02/18 lancets 28 gauge #180 each 11/02/18 lisinopril 20 1 tab PO DAILY #90 tab-cap 12/02/18 mg-hydrochlorothiazide 12.5 mg tablet albuterol sulfate 90 mcg/actuation 2 puff INHALATION Q4H PRN #8 gm 01/21/19 aerosol inhaler metoprolol succinate 50 mg 100 mg PO DAILY #90 tab 03/03/19 tablet,extended release 24 hr apixaban 5 mg tablet 5 mg PO BID #180 tab 03/14/19 semaglutide 14 mg tablet 14 mg PO DAILY #90 tab-cap 05/23/19 dapagliflozin 10 mg tablet 10 mg PO DAILY #90 tab 07/07/19 insulin glargine 100 unit/mL (3 50 unit SC DAILY #15 ml 07/22/19 mL) subcutaneous pen pen needle, diabetic 32 gauge x #100 each 11/11/19 atorvastatin 40 mg tablet 40 mg PO DAILY #90 tab-cap 12/19/19 Allergies Allergy/AdvReac Type Severity Reaction Status Date / Time latex Allergy Intermediate RASH, ITCH Verified 12/26/19 18:55 General BAMBI: 3 Review of Systems Constitutional Constitutional: Reports as per HPI, Denies chills, Denies fever(s), Denies headache(s) and Denies weakness ENT Ears, Nose, Mouth, and Throat: Denies headache(s) Cardiovascular Cardiovascular: Reports as per HPI Respiratory Respiratory: Reports as per HPI and Denies cough Musculoskeletal Musculoskeletal: Reports as per HPI and Denies tingling Integumentary/Breasts Skin/Breast: Reports as per HPI, Denies rash and Reports wounds (abrasion to right lateral knee, no pain over this area) Neurologic Neurologic: Reports as per HPI, Denies headache(s), Denies tingling, Denies paresthesias and Denies weakness [facility] Medical History (Updated 12/26/19 @ 19:41 by TRENT Ratliff) Current use of alf anticoagulation (01/24/15) apixaban starting 01/2015 Dr Pang Diabetes mellitus with neurological manifestations, uncontrolled Feet numb/sensitive; random BS 231 09/2011; A1c 7.7 11/2014; goal 7.0 DJD (degenerative joint disease) Essential hypertension (07/15/11) goal <140/80 Hematuria Hyperlipidemia Hyperlipidemia (12/07/02) GOAL 100 DUE TO METABOLIC SYND; NO MEDS 02/2012 Hypertension Leukocytosis, unspecified (03/20/15) Paroxysmal atrial fibrillation INITIAL 2003; PAROXYSMAL 09/2011; EF 65% ECHO 10/2011 GOOD; ECHO EF nl, mild LVH 12/201405/28/[address] Tee Pang at [facility]; 24 hr Holter 06/11/15 remains no A Fib 08/18/17 [facility] ablation Sciatica (07/15/11) INITIALLY L, NOW 02/[address]-lumbar 02/2013: DJD and central spinal stenosis; Tobacco use disorder Surgical History Cardioversion (05/28/15) Dr Pang [facility], both times; single shock 200 J Cardioversion (09/22/16) Dr Pang [facility], both times; single shock 200 J Open Carpal Tunnel release (02/14/14) Dr. Fontana; R, then L Open Carpal Tunnel release (03/13/14) Dr. Fontana; R, then L Total replacement of hip (01/22/04) Dr Fontana [facility] Vasectomy (~1988) Family History Mother Age: 83 Diabetes Father , [place] at age 64. Heart disease Myocardial infarction Sister No problems noted. Brother No problems noted. Brother No problems noted. Social History Smoking/Tobacco Use Status: Former Tobacco Use Alcohol Intake: never Drug use: Never Household members: spouse Housing: house Number of Children: 4 Communication Needs: None Current gender identity: male What is your relationship status?: Panel score (0-1 are the most socially isolated patients): 1 What type of physical activity do you participate in: walking and other Details: doing chores again Duration: 15-30 minutes/day Frequency: daily Seatbelt use: always Drive intox or ride w/intox after school driver: No Working smoke detector in home: Yes Fire extinguisher in home: Yes Carbon monox detector in home: Yes Do you feel safe at home: Yes Do you feel safe in your relationship?: Yes Exam Const General: cooperative, healthy appearing, comfortable, no acute distress, well developed and well groomed Nutritional Appearance: average body habitus and well nourished Orientation: alert and awake Resp Effort & Inspection: normal respiratory effort, able to speak in complete sentences and no respiratory distress Cardio Rate: regular rate Rhythm: regular rhythm Skin General skin exam: no rashes or lesions noted Lesions: no lesions Rashes: no rashes Trauma: no lacerations or abrasions Neuro General: patient alert and patient awake Cognition: normal cognition Speech: speech normal Gait: normal gait Motor: muscle tone normal throughout Sensory Exam: no sensory deficits noted Psych Appearance: grossly normal and well kempt Mental Status: mental status grossly normal Speech and Movement: speech and movement normal
[2019-12-26 18:50] VITALS: BP 156/98; PULSE 115; RESP 20; TEMP 36.6; O2SAT 96
[2019-12-26] MEDS: Acetaminophen 500 MG TAB 1000 MG PO (18:59)
--- NOTE | 2019-12-26 19:28 | DI.VRAD_ITS ---
PROCEDURE INFORMATION: Exam: XR Right Hand Exam date and time: 12/26/2019 7:12 PM Age: 59 years old Clinical indication: Injury or trauma; Blunt trauma (contusions or hematomas); Right; Injury date: 12/25/19; Injury details: Fall landing on hand TECHNIQUE: Imaging protocol: XR Right hand. Views: 3 or more views. COMPARISON: No relevant prior studies available. FINDINGS: Bones/joints: Moderate osteoarthritic changes are seen within the triscaphe and thumb CMC joints. Zoby-lc-dklzhsvj osteoarthritic changes are seen within the MCP and IP joint of the thumb, 2nd and 3rd DIP joints, and 5th PIP joint. Irregularity is seen surrounding the PIP joint of the 5th finger, suggesting sequela prior injury. No evidence for acute fracture or subluxation. Hook osteophytes are seen within the 2nd and 3rd metacarpal heads, which can be seen with CPPD. Soft tissues: Normal. IMPRESSION: Osteoarthritic changes are seen throughout the wrist and hand without evidence for acute fracture or subluxation. Dictated and Authenticated by: Falguni Tavarez MD. Ordering:FRANCISCA Skelton MD
--- NOTE | 2019-12-26 19:34 | DI.VRAD_ITS ---
PROCEDURE INFORMATION: Exam: XR Right Wrist Exam date and time: 12/26/2019 7:15 PM Age: 59 years old Clinical indication: Injury or trauma; Blunt trauma (contusions or hematomas); Wrist; Right; Injury date: 12/25/19; Injury details: Fall landing on hand TECHNIQUE: Imaging protocol: XR Right wrist. Views: 3 or more views. COMPARISON: CR XR HAND RT COMPLETE 12/26/2019 7:10 PM FINDINGS: Bones/joints: Moderate osteoarthritic changes within the triscaphe and thumb CMC joints. Iyno-mf-futpuhta osteoarthritic changes within the radiocarpal joint. Mild widening of the scapholunate interval, which can be seen with a scapholunate ligament injury. Calcifications are seen within the radiocarpal joint, consistent with CPPD. No evidence for acute fracture. Soft tissues: Mild diffuse soft tissue swelling. IMPRESSION: 1. No evidence for acute fracture within the wrist. 2. Mild widening of the scapholunate interval, which can be seen with a scapholunate ligament injury. 3. Osteoarthritic changes throughout the wrist, described above. Dictated and Authenticated by: Falguni Tavarez MD. Ordering:FRANCISCA Skelton MD
== END 2019-12-26 19:50 | disposition home or self-care (01) ==
PROVIDERS: Emergency Provider Physician Assistant; PCP Family Medicine
DX: M25.531 Pain in right wrist (principal); R20.2 Paresthesia of skin; S80.211A Abrasion, right knee, initial encounter; W18.39XA Other fall on same level, initial encounter; E11.9 Type 2 diabetes mellitus without complications; Z79.4 Long term (current) use of insulin; I10 Essential (primary) hypertension
CPT/HCPCS: 29125; 90471; 99284; 73110; 73130; L3908

== ENCOUNTER 2020-01-19 09:39 | Outpatient (CLI) | payer BC, SELFPAY ==
--- NOTE | 2020-01-19 08:15 | DI.RAD_ITS ---
EXAM: XR WRIST RT COMPL NAVICULAR CLINICAL HISTORY: right wrist pain. TECHNIQUE: 2D digital imaging was performed. COMPARISON: CR,XR XR WRIST RT COMPL NAVICULAR from 12/26/2019 FINDINGS: BONES: No acute fracture is present. No bony destructive lesion is seen. JOINTS: The carpal bones are normally aligned. Mild degenerative changes are seen in the wrist charac terized by subchondral sclerosis and periarticular spurring. The findings are most marked at the 1st CMC joint and the articulation between the scaphoid and the quadrangular bones. SOFT TISSUE: Normal. IMPRESSION: Degenerative changes of the right wrist. DATA REPOSITORY: RADIATION DOSE DELIVERED:
== END 2020-01-19 09:59 ==
PROVIDERS: PCP Family Medicine; Referring Provider Family Medicine; Visit Provider Physician Assistant
DX: M19.031 Primary osteoarthritis, right wrist (principal)
CPT/HCPCS: 73110

== ENCOUNTER 2020-07-13 02:45 | Outpatient (CLI) | payer BC, SELFPAY ==
[2020-07-13 16:59] LABS: ESR 21 mm//hr (0-20)
[2020-07-13 17:46] LABS: C-Reactive Protein 0.99 mg/dL (0.0-0.3)
[2020-07-16 10:28] LABS: Lyme Ab w Rflx to Lyme Confirm Negative (Negative)
== END 2020-07-13 02:46 | disposition home or self-care (01) ==
LOC: LBO 02:58
PROVIDERS: PCP Family Medicine; Visit Provider Family Medicine
DX: M13.0 Polyarthritis, unspecified (principal); M79.89 Other specified soft tissue disorders
CPT/HCPCS: 36415; 85652; 86140; 86618

== ENCOUNTER 2020-11-19 04:24 | Outpatient (CLI) | payer BC, SELFPAY ==
[2020-11-19 13:49] LABS: BUN 19 mg/dL (7-18); CREATININE 1.1 mg/dL (0.70-1.30); Calcium 8.3 mg/dL (8.5-10.1); Chloride 104 mmol/L (98-107); Glucose 269 mg/dL (74-106); Potassium 4.7 mmol/L (3.5-5.1); Sodium 140 mmol/L (136-145)
== END 2020-11-19 04:25 | disposition home or self-care (01) ==
LOC: LBO 04:24
PROVIDERS: PCP Family Medicine; Visit Provider Family Medicine
DX: R60.9 Edema, unspecified (principal)
CPT/HCPCS: 36415; 80048

== ENCOUNTER 2020-12-26 09:19 | Outpatient (CLI) | payer BC, SELFPAY ==
--- NOTE | 2020-12-26 09:15 | DI.RAD_ITS ---
Exam(s) XR CHEST 2V PA LATERAL EXAM: XR CHEST 2V PA LATERAL CLINICAL HISTORY: Sudden R sided chest pain, r/o pneumothorax,r07.9 TECHNIQUE: 2D digital imaging was performed of the chest. Two images were obtained. PA and lateral views were obtained. COMPARISON: CR CHEST 2 VIEWS PA,LAT from 09/23/2011 FINDINGS: MEDIASTINUM: Normal. HEART: Normal. PULMONARY VASCULATURE: Normal. LUNGS: Bilateral interstitial prominence throughout the lungs. No focal consolidating infiltrates. PLEURAL SPACE: No pleural effusion or pneumothorax. BONE:Within normal limits for the patient's age. OTHER FINDINGS:Normal. IMPRESSION: 1. No pneumothorax. 2. Bilateral interstitial disease. This may be chronic in nature, however, an acute interstitial pne umonia or edema cannot be excluded. Please correlate clinically. DATA REPOSITORY: RADIATION DOSE DELIVERED:
== END 2020-12-26 09:39 ==
PROVIDERS: PCP Family Medicine; Visit Provider Family Medicine
DX: R07.89 Other chest pain (principal); J98.4 Other disorders of lung
CPT/HCPCS: 71046

== ENCOUNTER 2021-03-15 12:05 | Outpatient (REF) | payer BC, SELFPAY | END 2021-03-15 12:06 | disposition home or self-care (01) | LOC: LBN 12:05 | PROVIDERS: PCP Family Medicine; Visit Provider Nurse Practitioner Family | DX: L03.115 Cellulitis of right lower limb (principal); L03.116 Cellulitis of left lower limb | CPT/HCPCS: 87077; 87070 ==

== ENCOUNTER 2021-05-13 15:20 | Outpatient (REF) | payer BC, SELFPAY | END 2021-05-13 15:21 | disposition home or self-care (01) | LOC: LBN 15:20 | PROVIDERS: PCP Family Medicine; Visit Provider Family Medicine | DX: L03.90 Cellulitis, unspecified (principal) | CPT/HCPCS: 87077; 87070; 87186 ==

== ENCOUNTER 2021-06-11 01:55 | Outpatient (CLI) | payer BC, SELFPAY ==
--- NOTE | 2021-06-11 07:45 | DI.US_ITS ---
APPROVED REPORT EXAM: Comprehensive 2D, Doppler, and color-flow Echocardiogram Patient Location: Out-Patient Manager Patient: Hayde Blanco RDCS (AE) Other Information Study Quality: Fair. Technically limited study due to body habitus, inability to position patient. Conclusion Normal left ventricular wall thickness and chamber size. Estimated ejection fraction is 45 to 50%. Segmental wall motion could not be accurately assessed The right ventricle appears grossly normal in size and systolic function The right atrium is mildly dilated. The left atrium is moderately dilated The aortic valve is sclerotic. Mean gradient is 10 mmHg. There is no aortic regurgitation. The num danielle of aortic valve leaflets could not be determined Thickened mitral leaflets with trace to mild regurgitation Normal tricuspid valve with mild regurgitation. Right ventricular systolic pressure could not be est imated Mildly dilated ascending aorta 3. 7 5 cm Wall motion Left Ventricle The left ventricle is normal size. Left ventricular systolic function is borderline. There is normal left ventricular wall thickness. Regional wall motion abnormalities cannot be excluded. LVEF is 45-50 %. Right Ventricle Right ventricle is grossly normal in size. Right ventricular systolic function is grossly normal. Atria Left atrium is moderately dilated. Right atrium is mildly dilated. Aortic Valve Aortic valve is calcified. Number of aortic valve leaflets could not be assessed. No hemodynamically significant valvular aortic stenosis. Gradient 10 mmHg No aortic regurgitation is present. Mitral Valve Thickened mitral leaflets Normal mitral valve excursion. Mild mitral stenosis. Trace to mild mitral r egurgitation. Tricuspid Valve The tricuspid valve is normal in structure. There is no tricuspid valve stenosis. Mild tricuspid regu rgitation. Pulmonic Valve The pulmonary valve is normal in structure. There is no pulmonic valvular stenosis. There is no pulmo adriana valvular regurgitation. Great Vessels The aortic root is normal in size. The ascending aorta is mildly dilated.3.75 cm The IVC was not visu alized. Pericardium Technically limited subcostal views. 2D Dimensions IVSD d PLAX 0.98 cm M: 0.6-1.2 LV Vol A2C d MOD 117.7 mL LVPW d PLAX 0.94 cm M: 0.6 - 1.2 LV Vol A4C d MOD 146.1 mL LVID d PLAX 4.94 cm M: 4.2 - 5.8 LA vol/ BSA A2C s A-L 20.9 mL/m2 LVDs 3.65 cm M: 2.5 - 4.0 LA vol/ BSA A4C s A-L 24.1 mL/m2 Ao Root d 3.04 cm M: 3.1 - 3.7 LA Vol/ BSA Biplane s A-L 22.6 mL/m2 RA Area A4C 24.28 cm2 LA Area A4C s MOD 21.49 cm2 RA Vol/ BSA A4C s A-L 30.3 mL/m2 LA Area A2C s MOD 19.90 cm2 Ao Asc Diam d 3.75 cm M: 2.6 - 3.4 LV EF A4C MOD 50.3 % LV EF Teichholz 50.3 % LV EF A2C MOD 45.9 % LVEF (Vanegas's) 46.69 % M: 52 - 72 LV EF Biplane MOD 46.7 % LV Volume 92.76 mL M: 62 - 150 SV 62.79 mL LV Volume Index 35.26 mL/m2 M: 34 - 74 SV Index 23.82 mL/m2 LV Vol Biplane MOD 134.5 mL FS 25.60 % M-Mode TAPSE 1.13 cm (M/F) >1.7 LV Diastology MV E' medial 0.117 (>0.07 m/s) MV E Vmax 0.76 (0.4-1.3 m/s) LV E/e MED 6.50 (<14) MV E' lateral 0.121 (>0.1 m/s) LV E/e LAT 6.30 (<14) MV E/E' medial 6.50 MV E/E' lateral 6.32 Aortic Valve LVOT Area 3.16 cm2 AoV Area Vmax 1.90 cm2 LVOT Vmax 1.23 m/s AoV Area/ BSA (Vmax) 0.72 cm2/m2 LVOT Mean Vitaly. 0.86 m/s MICK Mean Vitaly. 1.75 cm2 LVOT Peak Grad 6.1 mmHg MICK Mean Vitaly. Index 0.66 cm2/m2 LVOT Mean Grad 3.3 mmHg LVOT VTI 0.199 m LVOT Diam s 2.00 cm AoV Vmax 2.05 m/s Velocity Ratio 0.60 AoV Mean Vitaly. 1.55 m/s AoV Peak Grad 16.8 mmHg LVOT SV 62.95 mL AoV Mean Grad 10.4 mmHg AoV VTI 0.363 m AoV Area VTI 1.74 cm2 AoV Area/ BSA (VTI) 0.66 cm/m2 Mitral Valve MV DT 241 (160-240 msec) MV PHT 70 msec MV Area PHT 3.15 cm2 MV VTI 0.219 m MV Area VTI 2.88 (4.0-6.0 cm2) Pulmonary Valve PV Vmax 0.98 (0.5-1.5 m/s) RVOT Peak Gr. 1.65 mmHg PV Peak Grad 3.8 mmHg RVOT Mean Gr. 1.05 mmHg PV Mean Grad 2.8 mmHg RVOT VTI 0.121 m PV VTI 0.182 m RVOT Vmax 0.64 m/s Tricuspid Valve TR Peak Grad 36.4 mmHg TR Vmax 3.02 m/s
== END 2021-06-11 02:15 ==
PROVIDERS: PCP Family Medicine; Visit Provider Family Medicine
DX: R60.0 Localized edema (principal); I77.819 Aortic ectasia, unspecified site
CPT/HCPCS: 93306

== ENCOUNTER 2021-07-25 09:51 | Outpatient (REF) | payer BC, SELFPAY | END 2021-07-25 09:52 | disposition home or self-care (01) | LOC: LBN 09:51 | PROVIDERS: PCP Family Medicine; Visit Provider Family Medicine | DX: I87.2 Venous insufficiency (chronic) (peripheral) (principal); E11.40 Type 2 diabetes mellitus with diabetic neuropathy, unspecified; I83.228 Varicose veins of left lower extremity with both ulcer of other part of lower extremity and inflammation | CPT/HCPCS: 87077; 87070; 87186; 87205 ==

== ENCOUNTER 2021-12-21 16:12 | Emergency (ER) | payer BC, SELFPAY ==
[2021-12-21 16:20] VITALS: BP 121/68; PULSE 105; RESP 18; TEMP 37; O2SAT 95
--- NOTE | 2021-12-21 16:45 | DI.RAD_ITS ---
Exam(s) XR ANKLE RT COMPLETE EXAM: XR ANKLE RT COMPLETE CLINICAL HISTORY: cellulitis and wound over lateral mal. TECHNIQUE: 2D digital imaging was performed of the right ankle. Three images were obtained. AP, la teral and oblique views were obtained. COMPARISON: No exams were available for comparison FINDINGS: BONES: There is a tiny osseous density at the tip of the medial malleolus. No other evidence to sugg est a fracture is seen. No bony destructive lesion is seen. JOINTS: The ankle mortise is normally aligned. SOFT TISSUE: Soft tissue swelling about the ankle is noted. Vascular calcifications. IMPRESSION: 1. Tiny density adjacent to the medial malleolus. This may represent a fracture fragment of uncertai n acuity. 2. Soft tissue swelling about the ankle. DATA REPOSITORY: RADIATION DOSE DELIVERED:
--- NOTE | 2021-12-21 17:01 | ED.GENADUL_ITS ---
Discharge Plan Disposition Patient Disposition: STILL A PATIENT Discharge Details Chief Complaint: Cellulitis Primary Care Provider: Se Alva ED Provider: Gilberto Hayes Home Meds and New Rx's Prescriptions: No Action lisinopril-hydrochlorothiazide [Zestoretic] 20-25 mg tablet 1 tab PO DAILY Qty: 90 3RF gabapentin 300 mg capsule 300 mg PO TID Qty: 90 0RF naloxone [Narcan] 4 mg/actuation spray,non-aerosol 4 mg intranasal Q2M PRN (Reason: opioid overdose) Qty: 2 0RF Rx Instructions: spray 1 dose into ONE nostril; alternate nostrils w each dose until help arrives acetaminophen-codeine 300-30 mg tablet 1 tab PO QHS PRN (Reason: pain) Qty: 30 0RF albuterol sulfate 90 mcg/actuation HFA aerosol inhaler 2 puff inhalation Q6H PRN (Reason: shortness of breath or wheezing) Qty: 8.5 6RF Eliquis 5 mg tablet 5 mg PO BID Qty: 180 3RF Hold Instructions: Home Medication placed on hold at Doctor's office atorvastatin [Lipitor] 40 mg tablet 40 mg PO DAILY Qty: 90 3RF Rx Instructions: reduce risk of cardiovascular disease with diabetes E11.9 (DME) FreeStyle Lite Strips Strip 1 ea Miscellaneous DAILY Qty: 180 3RF Rx Instructions: For DM to keep A1C at or below 7.0, test BID; E11.49 insulin glargine [Lantus Solostar U-100 Insulin] 100 unit/mL (3 mL) insulin pen 50 unit SC DAILY Qty: 15 11RF (DME) lancets [FreeStyle Lancets] 28 gauge misc 1 ea Miscellaneous DAILY Qty: 180 3RF Rx Instructions: For DM E11.65 to maintain A1C at or below 7.0, test BID metformin 1,000 mg tablet 1,000 mg PO BID Qty: 180 3RF metoprolol succinate 50 mg tablet extended release 24 hr 100 mg PO DAILY Qty: 90 3RF semaglutide 14 mg tablet 14 mg PO DAILY Qty: 90 3RF (DME) pen needle, diabetic [Comfort EZ Pen [place]] 32 gauge x 5/32 needle See Dose Instructions .ROUTE .MEDSUPPLY Qty: 100 3RF Dose Instruction: As directed Rx Instructions: Daily to keep HbA1c below 6.5% trazodone 50 mg tablet 50 mg PO QHS PRN (Reason: sleep) Qty: 90 3RF furosemide 20 mg tablet 20 mg PO DAILY Qty: 90 0RF furosemide 40 mg tablet 40 mg PO DAILY Qty: 90 3RF Medical Decision Making 61-year-old male history of diabetes, chronic venous stasis presents with painful ulceration with purulent drainage that he noticed yesterday. Tachycardic on arrival. Evidence of shallow ulceration overlying soft tissue of right lateral malleolus with purulent material spontaneously draining, no crepitus no fluctuance noted. Consider self resolving abscess with cellulitis versus cellulitis versus must consider underlying osteomyelitis given diabetic. Generally nontoxic however high risk for serious bacterial infection. Will start empirically on clindamycin, fluids, will draw cultures, basic labs, x-ray screening to assess for any cortical irregularity in fibular head. Disposition pending results reassessment and imaging. Given close availability of follow-up as an outpatient and generally nontoxic state will consider outpatient oral antibiotics and wound care referral 20: 01 spoke with [facility] radiologist discussed x-ray of ankle they do not see any cortical lucency on x-ray, given degree of inflammation and inflammatory markers diabetic state and insensitivity of x-ray and the fact that we do not have access to MRI at this moment will send patient for screening CT of his right ankle. Disposition pending results and reassessment. HPI General Date/Time Provider Initiated Documentation: 12/21/21 16:51 . HPI Narrative: 61-year-old male history of diabetes, chronic venous stasis, chronic recurrent leg wounds presents with painful draining wound on his right ankle that he noticed yesterday; denies fevers chills nausea or vomiting. Follows closely with outpatient provider. Related Data Home Medications Medication Instructions Recorded Confirmed naloxone 4 mg/actuation nasal 4 mg intranasal Q2M PRN opioid 01/28/21 12/21/21 spray (Narcan) overdose #2 ea albuterol sulfate 90 mcg/actuation 2 puff inhalation Q6H PRN 04/30/21 12/21/21 aerosol inhaler shortness of breath or wheezing #8.5 grams apixaban 5 mg tablet (Eliquis) 5 mg PO BID #180 tabs 04/30/21 12/21/21 atorvastatin 40 mg tablet (Lipitor) 40 mg PO DAILY #90 tab-caps 04/30/21 12/21/21 blood sugar diagnostic (FreeStyle #180 strips 04/30/21 12/21/21 Lite Strips) insulin glargine 100 unit/mL (3 50 unit (0.5 mL) subcut DAILY #15 04/30/21 12/21/21 mL) subcutaneous pen (Lantus mL Solostar U-100 Insulin) lancets 28 gauge (FreeStyle #180 ea 04/30/21 12/21/21 Lancets) metformin 1,000 mg tablet 1,000 mg PO BID #180 tabs 04/30/21 12/21/21 metoprolol succinate 50 mg 100 mg PO DAILY #90 tabs 04/30/21 12/21/21 tablet,extended release 24 hr semaglutide 14 mg tablet 14 mg PO DAILY #90 tabs 04/30/21 12/21/21 lisinopril 20 1 tab PO DAILY #90 tabs 05/13/21 12/21/21 mg-hydrochlorothiazide 25 mg tablet (Zestoretic) acetaminophen 300 mg-codeine 30 mg 1 tab PO QHS PRN pain #30 tabs 06/20/21 12/21/21 tablet pen needle, diabetic 32 gauge x #100 ea 06/20/21 12/21/21 (Comfort EZ Pen [place]) gabapentin 300 mg capsule 300 mg PO TID #90 caps 07/25/21 12/21/21 trazodone 50 mg tablet 50 mg PO QHS PRN sleep #90 tabs 09/19/21 12/21/21 furosemide 20 mg tablet 20 mg PO DAILY #90 tabs 10/14/21 12/21/21 furosemide 40 mg tablet 40 mg PO DAILY #90 tabs 10/14/21 12/21/21 Previous Rx's Medication Instructions Recorded naloxone 4 mg/actuation nasal 4 mg intranasal Q2M PRN opioid 01/28/21 spray (Narcan) overdose #2 ea albuterol sulfate 90 mcg/actuation 2 puff inhalation Q6H PRN 04/30/21 aerosol inhaler shortness of breath or wheezing #8.5 grams apixaban 5 mg tablet (Eliquis) 5 mg PO BID #180 tabs 04/30/21 atorvastatin 40 mg tablet (Lipitor) 40 mg PO DAILY #90 tab-caps 04/30/21 blood sugar diagnostic (FreeStyle #180 strips 04/30/21 Lite Strips) insulin glargine 100 unit/mL (3 50 unit (0.5 mL) subcut DAILY #15 04/30/21 mL) subcutaneous pen (Lantus mL Solostar U-100 Insulin) lancets 28 gauge (FreeStyle #180 ea 04/30/21 Lancets) metformin 1,000 mg tablet 1,000 mg PO BID #180 tabs 04/30/21 metoprolol succinate 50 mg 100 mg PO DAILY #90 tabs 04/30/21 tablet,extended release 24 hr semaglutide 14 mg tablet 14 mg PO DAILY #90 tabs 04/30/21 lisinopril 20 1 tab PO DAILY #90 tabs 05/13/21 mg-hydrochlorothiazide 25 mg tablet (Zestoretic) acetaminophen 300 mg-codeine 30 mg 1 tab PO QHS PRN pain #30 tabs 06/20/21 tablet pen needle, diabetic 32 gauge x #100 ea 06/20/21 (Comfort EZ Pen [place]) gabapentin 300 mg capsule 300 mg PO TID #90 caps 07/25/21 trazodone 50 mg tablet 50 mg PO QHS PRN sleep #90 tabs 09/19/21 furosemide 20 mg tablet 20 mg PO DAILY #90 tabs 10/14/21 furosemide 40 mg tablet 40 mg PO DAILY #90 tabs 10/14/21 Allergies Allergy/AdvReac Type Severity Reaction Status Date / Time latex Allergy Intermediate RASH, ITCH Verified 12/21/21 16:24 General Stated Complaint: Cellulitis BAMBI: 3 Review of Systems Narrative: Review of Systems Constitutional: negative Eyes: negative ENT: negative Cardiovascular: negative Respiratory: negative Gastrointestinal: negative : negative Musculoskeletal: negative Skin: Ankle wound Neurologic: negative Psych: negative PFSH All Active Problems (Updated 11/01/21 @ 08:25 by Emma Huntley RN) COVID (Acute ~11/01/21) Bilateral leg ulcer (Acute ~07/2021) 08/07/21 multiple bilateral leg ulcers, be treated at [facility] Diabetic neuropathy (Acute) SARS-CoV-2 positive (Acute) tested positive 06/27/21 Dyspnea on exertion (Acute) Venous stasis dermatitis (Acute) Cellulitis (Acute) Lower extremity edema (Acute) Body fluid retention (Acute) Polymyalgia rheumatica (Acute) Right wrist sprain (Acute) Hematuria (Acute) Atrial fibrillation (Acute 09/21/11) Carpal tunnel syndrome (Acute 03/09/07) Obstructive sleep apnea (Chronic) cpap machine. Sciatica (Chronic 07/15/11) INITIALLY L, NOW 02/[address]-lumbar 02/2013: DJD and central spinal stenosis; Paroxysmal atrial fibrillation (Chronic) INITIAL 2004; PAROXYSMAL 09/2011; EF 65% ECHO 10/2011 GOOD; ECHO EF nl, mild LVH 12/201405/28/[address] Tee Pang at [facility]; 24 hr Holter 06/11/15 remains no A Fib 08/18/17 [facility] ablation Leukocytosis, unspecified (Chronic 03/20/15) Hyperlipidemia (Chronic 12/07/02) GOAL 100 DUE TO METABOLIC SYND; NO MEDS 02/2012 Essential hypertension (Chronic 07/15/11) goal <140/80 Diabetes mellitus with neurological manifestations, uncontrolled (Chronic) Feet numb/sensitive; random BS 231 09/2011; A1c 7.7 11/2014; goal 7.0 Current use of half-way anticoagulation (Chronic 01/24/15) apixaban starting 01/2015 Dr Pang Medical History DJD (degenerative joint disease) Hyperlipidemia Hypertension Tobacco use disorder Surgical History Cardioversion (05/28/15) Dr Pang [facility], both times; single shock 200 J Cardioversion (09/22/16) Dr Pang [facility], both times; single shock 200 J Open Carpal Tunnel release (02/14/14) Dr. Fontana; R, then L Open Carpal Tunnel release (03/13/14) Dr. Fontana; R, then L Total replacement of hip (01/22/04) Dr Fontana [facility] Vasectomy (~1988) Family History Mother Age: 85 Diabetes Father , [place] at age 64. Heart disease Myocardial infarction Sister No problems noted. Brother No problems noted. Brother No problems noted. Social History Smoking/Tobacco Use Status: Former Tobacco Use Smoking risk assessment performed?: Yes Alcohol Intake: never Details: Has in the past, not excessive. 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 driver: No Working smoke detector in home: Yes Fire extinguisher in home: Yes Carbon monox detector in home: Yes Do you feel safe at home: Yes Do you feel safe in your relationship?: Yes Exam Narrative Exam Narrative: Physical Examination General: alert, awake, cooperative, resting comfortably, no acute distress HEENT: normocephalic, atraumatic; PERRL, EOM intact, conjunctiva normal; no nasal discharge; moist mucous membranes, oral and pharyngeal mucosa normal, tolerating secretions Neck: supple, trachea midline; full ROM Chest: normal to inspection Respiratory: normal respiratory effort, speaking in full sentences, clear to auscultation, no wheezing, rales or rhonchi Cardiac: Tachycardia, regular rhythm, S1S2 intact, no murmurs rubs or gallops GI: abdomen soft, non-tender, non-distended; no palpable mass or hepatosplenomegaly Skin: no lesions, rashes or trauma appreciated Neuro: AAOx3, normal speech, moving all extremities Extremities: 2 cm shallow ulceration of soft tissue overlying right lateral malleolus, superficial purulent material and spontaneous drainage at wound site, with surrounding induration and erythema, no fluctuance noted Psych: Appropriate mood and affect Course Vital Signs Vital signs: Vital Signs Temperature 37.0 C 12/21/21 16:20 Pulse 105 H 12/21/21 16:20 Respiratory Rate 18 12/21/21 16:20 Blood Pressure 121/68 12/21/21 16:20 Pulse Oximetry 95 12/21/21 16:20 Temperature 37.0 C 12/21/21 16:20 Temperature Source Tympanic 12/21/21 16:20 Pulse 105 H 12/21/21 16:20 Respiratory Rate 18 12/21/21 16:20 Respiratory Effort Non-Labored 12/21/21 16:24 Blood Pressure 121/68 12/21/21 16:20 Blood Pressure Position Sitting 12/21/21 16:20 Pulse Oximetry 95 12/21/21 16:20 Oxygen Delivery Method Room Air 12/21/21 16:20 Oxygen Flow Rate 0 12/21/21 16:20 Pain Level 10 12/21/21 16:20 Lab/Test Results Lab/Test Results: 12/21/21 16:57 Blood Blood Culture - Pending 12/21/21 16:57 Blood Blood Culture - Pending
[2021-12-21 17:20] LABS: ESR 42 mm/hr (0-20)
[2021-12-21 17:22] LABS: Abs Immature Grans 0.14 10^3/uL (0.0-0.06); Absolute Basophil Count 0.07 10^3/uL (0.0-0.2); Absolute Eosinophil Count 0.18 10^3/uL (0.0-0.7); Absolute Lymphocyte Count 2.02 10^3/uL (1.2-3.4); Absolute Neutrophil Count 9.46 10^3/uL (1.2-6.7); Basophils % 0.5; Eosinophils % 1.4; HCT 42.9 % (40.0-50.0); HGB 14.5 g/dL (13.5-17.5); Immature Grans % 1.1; Lymphocytes % 15.3; MCH 29.2 pg (27.0-33.0); MCHC 33.8 % (32.0-36.0); MCV 86 fL (80-95); MPV 9.8 fL (8.0-11.0); Monocytes % 9.9; Neutrophils % 71.8; Platelet Count 382 10^3/uL (130-400); RBC 4.97 10^6/uL (4.36-5.78); RDW-SD 40.7 fL; WBC 13.18 10^3/uL (4.4-10.8)
[2021-12-21 17:38] LABS: ALT 25 U/L (16-63); AST 14 U/L (15-37); Albumin 3.6 g/dL (3.4-5.0); Alkaline Phosphatase 76 U/L (46-116); Anion Gap 9.6 mmol/L (3-11); BUN 34 mg/dL (7-18); Bilirubin, Total 0.6 mg/dL (0.2-1.0); CO2 29.4 mmol/L (21.0-32.0); CREATININE 1.5 mg/dL (0.70-1.30); Calcium 8.8 mg/dL (8.5-10.1); Chloride 94 mmol/L (98-107); Estimated GFR 51.99 (mL/min/1.73m2); Glucose 365 mg/dL (74-106); Potassium 4.2 mmol/L (3.5-5.1); Sodium 133 mmol/L (136-145); Total Protein 8.4 g/dL (6.4-8.2)
[2021-12-21] MEDS: Ketorolac 15 MG/ML VIAL IVP (17:41)
[2021-12-21] MEDS: CLINDAMYCIN 600 MG/50 ML BAG 100 MG IVPB (17:41)
[2021-12-21] MEDS: Normal Saline 1,000 ML 1000 ML IV (17:42)
--- NOTE | 2021-12-21 19:01 | DI.VRAD_ITS ---
Addendum created by Lele Richmond MD on 12/21/2021 7:35:32 PM EDT: Addendum: The ordering provider called to discuss the case further. There are no radiographic findings suggestive of osteomyelitis or septic joint. No soft tissue air. Initial report created on 12/21/2021 7:00:59 PM EDT: PROCEDURE INFORMATION: Exam: XR Right Ankle Exam date and time: 12/21/2021 6:10 PM Age: 61 years old Clinical indication: Cellulitis; Ankle and lower leg; Right; Additional info: Cellulitis and open wound over lateral mal TECHNIQUE: Imaging protocol: Radiologic exam of the Right ankle. Views: 3 or more views. COMPARISON: US EXTREMITY VENOUS BI 02/18/2021 2:48 PM FINDINGS: Bones/joints: 2 mm bone flake at the tip of the medial malleolus could represent a small acute cortical avulsion flake. No tanisha macro fractures. No blastic or lytic lesions. The ankle mortise joint is well maintained. No gross joint effusion. The visualized hindfoot and midfoot are grossly well aligned. No hindfoot coalition. Soft tissues: No periostitis or osteolysis. Moderate soft tissue swelling around the ankle and hindfoot. No radiopaque foreign bodies. Vasculature: Moderate calcific atherosclerosis. IMPRESSION: 1. Minimal 2 mm bone flake at the tip of the medial malleolus could represent a small acute cortical avulsion flake. No tanisha macro fractures. 2. Soft tissue swelling and moderate calcific atherosclerosis. Dictated and Authenticated by: Lele Richmond MD. Ordering:ALEXEI Macias MD
== END 2021-12-21 20:12 ==
PROVIDERS: Emergency Provider Emergency Medicine; PCP Family Medicine
DX: E11.622 Type 2 diabetes mellitus with other skin ulcer (principal); L97.329 Non-pressure chronic ulcer of left ankle with unspecified severity; I87.8 Other specified disorders of veins; R00.0 Tachycardia, unspecified; Z79.4 Long term (current) use of insulin; Z79.84 Long term (current) use of oral hypoglycemic drugs
CPT/HCPCS: 80053; 85652; 87040; 96361; 96365; 96375; 99284; 73610; 85025; 86140; J1885

== ENCOUNTER 2021-12-22 08:45 | Emergency (ER) | payer BC, SELFPAY ==
--- NOTE | 2021-12-22 08:57 | DI.CT_ITS ---
Exam(s) CT LOWER EXTREMITY RT W EXAM: CT LOWER EXTREMITY RT W CLINICAL HISTORY: wound over lateral mal; abscess v osteo?. TECHNIQUE: Imaging Protocol: Axial computed tomography images with coronal and sagittal reformatted images were created and reviewed. CONTRAST MATERIAL: Intravenous: Omnipaque 350. Contrast Volume: 100 ML COMPARISON: CR,XR XR ANKLE RT COMPLETE from 12/21/2021 FINDINGS: Bones: The osseous structures and articular surfaces are intact. Well corticated ossicle at the tip of the medial malleolus likely reflects remote trauma. Bony alignment is satisfactory. No cellulit ic or osteomyelitic changes are identified. Mild degenerative changes are seen in the foot. No lyti c or sclerotic lesions are identified. Soft Tissues: There is skin thickening and soft tissue stranding throughout the distal calf and ankle but no focal fluid collection is seen to suggest an abscess. No soft tissue air is seen. Enhancement: No abnormal enhancement is identified. IMPRESSION: 1. No CT findings to suggest osteomyelitis. 2. Extensive soft tissue swelling and skin thickening of the calf and ankle consistent with celluliti s. 3. No focal fluid collection is seen to suggest an abscess. RADIATION DOSE DELIVERED: 315.38mGy.cm Total DLP 315.38mGy.cm Total DLP DATA REPOSITORY: All CT scans at this facility are submitted to the National Radiology Data Registry (NRDR) Dose Index Registry (DIR) with the [employer] ([employer]). RADIATION OPTIMIZATION: All CT scans at this facility use at least one of these dose optimization te chniques: automated exposure control; mA and/or kV adjustment per patient size (includes targeted exa ms where dose is matched to clinical indication); or iterative reconstruction.
[2021-12-22 08:59] VITALS: BP 118/80; PULSE 89; RESP 18; TEMP 37.1; O2SAT 94
--- NOTE | 2021-12-22 09:08 | ED.GENADUL_ITS ---
Discharge Plan Disposition Patient Disposition: HOME Condition: Stable Discharge Details Clinical Impression: Cellulitis, Leg wound, right Primary Care Provider: Se Alva ED Provider: Gilberto Hayes Home Meds and New Rx's Prescriptions: New clindamycin HCl 300 mg capsule 300 mg PO QID 7 Days Qty: 28 0RF oxycodone-acetaminophen [Percocet] 5-325 mg tablet 1 tab PO DAILY PRN (Reason: pain) Qty: 5 0RF Rx Instructions: prn severe pain No Action lisinopril-hydrochlorothiazide [Zestoretic] 20-25 mg tablet 1 tab PO DAILY Qty: 90 3RF gabapentin 300 mg capsule 300 mg PO TID Qty: 90 0RF naloxone [Narcan] 4 mg/actuation spray,non-aerosol 4 mg intranasal Q2M PRN (Reason: opioid overdose) Qty: 2 0RF Rx Instructions: spray 1 dose into ONE nostril; alternate nostrils w each dose until help arrives acetaminophen-codeine 300-30 mg tablet 1 tab PO QHS PRN (Reason: pain) Qty: 30 0RF albuterol sulfate 90 mcg/actuation HFA aerosol inhaler 2 puff inhalation Q6H PRN (Reason: shortness of breath or wheezing) Qty: 8.5 6RF Eliquis 5 mg tablet 5 mg PO BID Qty: 180 3RF Hold Instructions: Home Medication placed on hold at Doctor's office atorvastatin [Lipitor] 40 mg tablet 40 mg PO DAILY Qty: 90 3RF Rx Instructions: reduce risk of cardiovascular disease with diabetes E11.9 (DME) FreeStyle Lite Strips Strip 1 ea Miscellaneous DAILY Qty: 180 3RF Rx Instructions: For DM to keep A1C at or below 7.0, test BID; E11.49 insulin glargine [Lantus Solostar U-100 Insulin] 100 unit/mL (3 mL) insulin pen 50 unit SC DAILY Qty: 15 11RF (DME) lancets [FreeStyle Lancets] 28 gauge misc 1 ea Miscellaneous DAILY Qty: 180 3RF Rx Instructions: For DM E11.65 to maintain A1C at or below 7.0, test BID metformin 1,000 mg tablet 1,000 mg PO BID Qty: 180 3RF metoprolol succinate 50 mg tablet extended release 24 hr 100 mg PO DAILY Qty: 90 3RF semaglutide 14 mg tablet 14 mg PO DAILY Qty: 90 3RF (DME) pen needle, diabetic [Comfort EZ Pen Holland] 32 gauge x 5/32 needle See Dose Instructions .ROUTE .MEDSUPPLY Qty: 100 3RF Dose Instruction: As directed Rx Instructions: Daily to keep HbA1c below 6.5% trazodone 50 mg tablet 50 mg PO QHS PRN (Reason: sleep) Qty: 90 3RF furosemide 20 mg tablet 20 mg PO DAILY Qty: 90 0RF furosemide 40 mg tablet 40 mg PO DAILY Qty: 90 3RF Discharge Instructions Instructions: Cellulitis (ED) Additional Instructions: Please follow-up closely with your primary care physician for wound check as sc heduled on Thursday. Please return to the emergency department for any worsening symptoms such as fevers chills sweats worsening wounds or nonhealing wounds or other abnormal symptoms. Medical Decision Making 61-year-old male history of diabetes presents with wound to his right lateral ankle, noted over the past couple of days, wound is shallow based with purulent material and spontaneous drainage, patient is afebrile nontoxic however does have evidence of surrounding cellulitis concern for abscess versus osteomyelitis. X-ray performed yesterday did not display any cortical irregularities however this is then sensitive study, we do not have MRI available on the weekend therefore I suggested CT imaging, patient did not wait for complete work-up as he anticipated his time in the emergency department would be too alarmed, has returned today for imaging. Yesterday patient did have leukocytosis and elevated inflammatory markers, was tachycardic yesterday however currently hemodynamically stable nontachycardic afebrile nontoxic. Disposition pending imaging results. 10: 20 patient resting comfortably no acute distress. Leg wound appears stable from yesterday. Hemodynamically stable afebrile nontachycardic nontoxic. No evidence of osteomyelitis on CT scan, evidence of localized cellulitis, blistering of leg noted on CT this is chronic per patient and stable from last examination. Patient has appointment on Thursday to see his primary for wound check. Given strict return precautions for any worsening symptoms or poor heal ing. HPI General Date/Time Provider Initiated Documentation: 12/22/21 08:57 . HPI Narrative: 61-year-old male history of diabetes presents with wound to his right lower extremity that he noted over the past couple of days, lateral aspect of his right ankle, some spontaneous drainage, denies fevers or chills, was evaluated yesterday however eloped from the emergency department before his work-up was complete as he realized his wait time would be significant. Related Data Home Medications Medication Instructions Recorded Confirmed naloxone 4 mg/actuation nasal 4 mg intranasal Q2M PRN opioid 01/28/21 12/21/21 spray (Narcan) overdose #2 ea albuterol sulfate 90 mcg/actuation 2 puff inhalation Q6H PRN 04/30/21 12/21/21 aerosol inhaler shortness of breath or wheezing #8.5 grams apixaban 5 mg tablet (Eliquis) 5 mg PO BID #180 tabs 04/30/21 12/21/21 atorvastatin 40 mg tablet (Lipitor) 40 mg PO DAILY #90 tab-caps 04/30/21 12/21/21 blood sugar diagnostic (FreeStyle #180 strips 04/30/21 12/21/21 Lite Strips) insulin glargine 100 unit/mL (3 50 unit (0.5 mL) subcut DAILY #15 04/30/21 12/21/21 mL) subcutaneous pen (Lantus mL Solostar U-100 Insulin) lancets 28 gauge (FreeStyle #180 ea 04/30/21 12/21/21 Lancets) metformin 1,000 mg tablet 1,000 mg PO BID #180 tabs 04/30/21 12/21/21 metoprolol succinate 50 mg 100 mg PO DAILY #90 tabs 04/30/21 12/21/21 tablet,extended release 24 hr semaglutide 14 mg tablet 14 mg PO DAILY #90 tabs 04/30/21 12/21/21 lisinopril 20 1 tab PO DAILY #90 tabs 05/13/21 12/21/21 mg-hydrochlorothiazide 25 mg tablet (Zestoretic) acetaminophen 300 mg-codeine 30 mg 1 tab PO QHS PRN pain #30 tabs 06/20/21 12/21/21 tablet pen needle, diabetic 32 gauge x #100 ea 06/20/21 12/21/21 (Comfort EZ Pen Holland) gabapentin 300 mg capsule 300 mg PO TID #90 caps 07/25/21 12/21/21 trazodone 50 mg tablet 50 mg PO QHS PRN sleep #90 tabs 09/19/21 12/22/21 furosemide 20 mg tablet 20 mg PO DAILY #90 tabs 10/14/21 12/21/21 furosemide 40 mg tablet 40 mg PO DAILY #90 tabs 10/14/21 12/21/21 clindamycin HCl 300 mg capsule 300 mg PO QID 7 days #28 caps 12/22/21 oxycodone-acetaminophen 5 mg-325 1 tab PO DAILY PRN pain #5 tabs 12/22/21 mg tablet (Percocet) Previous Rx's Medication Instructions Recorded naloxone 4 mg/actuation nasal 4 mg intranasal Q2M PRN opioid 01/28/21 spray (Narcan) overdose #2 ea albuterol sulfate 90 mcg/actuation 2 puff inhalation Q6H PRN 04/30/21 aerosol inhaler shortness of breath or wheezing #8.5 grams apixaban 5 mg tablet (Eliquis) 5 mg PO BID #180 tabs 04/30/21 atorvastatin 40 mg tablet (Lipitor) 40 mg PO DAILY #90 tab-caps 04/30/21 blood sugar diagnostic (FreeStyle #180 strips 04/30/21 Lite Strips) insulin glargine 100 unit/mL (3 50 unit (0.5 mL) subcut DAILY #15 04/30/21 mL) subcutaneous pen (Lantus mL Solostar U-100 Insulin) lancets 28 gauge (FreeStyle #180 ea 04/30/21 Lancets) metformin 1,000 mg tablet 1,000 mg PO BID #180 tabs 04/30/21 metoprolol succinate 50 mg 100 mg PO DAILY #90 tabs 04/30/21 tablet,extended release 24 hr semaglutide 14 mg tablet 14 mg PO DAILY #90 tabs 04/30/21 lisinopril 20 1 tab PO DAILY #90 tabs 05/13/21 mg-hydrochlorothiazide 25 mg tablet (Zestoretic) acetaminophen 300 mg-codeine 30 mg 1 tab PO QHS PRN pain #30 tabs 06/20/21 tablet pen needle, diabetic 32 gauge x #100 ea 06/20/21/32 (Comfort EZ Pen Holland) gabapentin 300 mg capsule 300 mg PO TID #90 caps 07/25/21 trazodone 50 mg tablet 50 mg PO QHS PRN sleep #90 tabs 09/19/21 furosemide 20 mg tablet 20 mg PO DAILY #90 tabs 10/14/21 furosemide 40 mg tablet 40 mg PO DAILY #90 tabs 10/14/21 clindamycin HCl 300 mg capsule 300 mg PO QID 7 days #28 caps 12/22/21 oxycodone-acetaminophen 5 mg-325 1 tab PO DAILY PRN pain #5 tabs 12/22/21 mg tablet (Percocet) Allergies Allergy/AdvReac Type Severity Reaction Status Date / Time latex Allergy Intermediate RASH, ITCH Verified 12/22/21 09:27 General Stated Complaint: Cellulitis BAMBI: 3 Review of Systems Narrative: Review of Systems Constitutional: negative Eyes: negative ENT: negative Cardiovascular: negative Respiratory: negative Gastrointestinal: negative : negative Musculoskeletal: negative Skin: Ankle wound Neurologic: negative Psych: negative PFSH All Active Problems (Updated 12/22/21 @ 10:22 by Gilberto Hayes MD) Ankle wound (Acute) Cellulitis (Acute) Leg wound, right (Acute) COVID (Acute ~11/01/21) Bilateral leg ulcer (Acute ~07/2021) 08/07/21 multiple bilateral leg ulcers, be treated at [facility] Diabetic neuropathy (Acute) SARS-CoV-2 positive (Acute) tested positive 06/27/21 Dyspnea on exertion (Acute) Venous stasis dermatitis (Acute) Cellulitis (Acute) Lower extremity edema (Acute) Body fluid retention (Acute) Polymyalgia rheumatica (Acute) Right wrist sprain (Acute) Hematuria (Acute) Atrial fibrillation (Acute 09/21/11) Carpal tunnel syndrome (Acute 03/09/07) Obstructive sleep apnea (Chronic) cpap machine. Sciatica (Chronic 07/15/11) INITIALLY L, NOW 02/[address]-lumbar 02/2013: DJD and central spinal stenosis; Paroxysmal atrial fibrillation (Chronic) INITIAL 2004; PAROXYSMAL 09/2011; EF 65% ECHO 10/2011 GOOD; ECHO EF nl, mild LVH 12/201405/28/[address] Tee Pang at [facility]; 24 hr Holter 06/11/15 remains no A Fib 08/18/17 [facility] ablation Leukocytosis, unspecified (Chronic 03/20/15) Hyperlipidemia (Chronic 12/07/02) GOAL 100 DUE TO METABOLIC SYND; NO MEDS 02/2012 Essential hypertension (Chronic 07/15/11) goal <140/80 Diabetes mellitus with neurological manifestations, uncontrolled (Chronic) Feet numb/sensitive; random BS 231 09/2011; A1c 7.7 11/2014; goal 7.0 Current use of custodial anticoagulation (Chronic 01/24/15) apixaban starting 01/2015 Dr Pang Medical History DJD (degenerative joint disease) Hyperlipidemia Hypertension Tobacco use disorder Surgical History Cardioversion (05/28/15) Dr Pang, [facility], both times; single shock 200 J Cardioversion (09/22/16) Dr Pang [facility], both times; single shock 200 J Open Carpal Tunnel release (02/14/14) Dr. Fontana; R, then L Open Carpal Tunnel release (03/13/14) Dr. Fontana; R, then L Total replacement of hip (01/22/04) Dr Fontana, [facility] Vasectomy (~1988) Family History Mother Age: 85 Diabetes Father , [place] at age 64. Heart disease Myocardial infarction Sister No problems noted. Brother No problems noted. Brother No problems noted. Social History Smoking/Tobacco Use Status: Former Tobacco Use Smoking risk assessment performed?: Yes Alcohol Intake: never Details: Has in the past, not excessive. Drug use: Daily Substance use type: marijuana Details: Marijuana use daily for sleep. Has dine it since he was 12. 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: No Working smoke detector in home: Yes Fire extinguisher in home: Yes Carbon monox detector in home: Yes Do you feel safe at home: Yes Do you feel safe in your relationship?: Yes Exam Narrative Exam Narrative: Physical Examination General: alert, awake, cooperative, resting comfortably, no acute distress HEENT: normocephalic, atraumatic; PERRL, EOM intact, conjunctiva normal; no nasal discharge; moist mucous membranes, oral and pharyngeal mucosa normal, tolerating secretions Neck: supple, trachea midline; full ROM Chest: normal to inspection Respiratory: normal respiratory effort, speaking in full sentences, clear to auscultation, no wheezing, rales or rhonchi Cardiac: regular rate, regular rhythm, S1S2 intact, no murmurs rubs or gallops GI: abdomen soft, non-tender, non-distended; no palpable mass or hepatosplenomegaly Skin: Shallow ulceration to soft tissue overlying lateral malleolus of right ankle, some purulent drainage, surrounding induration and erythema; evidence of venous stasis skin changes bilaterally lower extremities Neuro: AAOx3, normal speech, moving all extremities Extremities: See skin Psych: Appropriate mood and affect Course Vital Signs Vital signs: Vital Signs Temperature 37.1 C 12/22/21 08:59 Pulse 89 12/22/21 08:59 Respiratory Rate 18 12/22/21 08:59 Blood Pressure 118/80 12/22/21 08:59 Pulse Oximetry 94 12/22/21 08:59 Temperature 37.1 C 12/22/21 08:59 Temperature Source Temporal Artery Scan 12/22/21 08:59 Pulse 89 12/22/21 08:59 Respiratory Rate 18 12/22/21 08:59 Blood Pressure 118/80 12/22/21 08:59 Blood Pressure Position Sitting 12/22/21 08:59 Pulse Oximetry 94 12/22/21 08:59 Oxygen Delivery Method Room Air 12/22/21 08:59 Oxygen Flow Rate 0 12/22/21 08:59
[2021-12-22] MEDS: Omnipaque 350 MG/ML 100 ML BTL IJ (09:39)
[2021-12-22] MEDS: Normal Saline Flush 10 ML SYR IVP (09:40)
--- NOTE | 2021-12-22 10:02 | DI.VRAD_ITS ---
PROCEDURE INFORMATION: Exam: CT Right Lower Extremity With Contrast, Ankle Exam date and time: 12/22/2021 9:30 AM Age: 61 years old Clinical indication: Other: Wound over lateral mal; Abscess v osteo? ; Additional info: Wound over lateral mal; Abscess v osteo? Right ankle TECHNIQUE: Imaging protocol: CT of the Right lower extremity with intravenous contrast was performed. Exam focused on the ankle. Radiation optimization: All CT scans at this facility use at least one of these dose optimization techniques: automated exposure control; mA and/or kV adjustment per patient size (includes targeted exams where dose is matched to clinical indication); or iterative reconstruction. Contrast material: OMNIPAQUE 350; Contrast volume: 100 ml; Contrast route: INTRAVENOUS (IV); COMPARISON: XR ANKLE RT COMPLETE 12/21/2021 6:10 PM FINDINGS: Bones/joints: There is no cortical erosion, periosteal reaction, or abnormal osseous lucency in the lateral malleolus or elsewhere in the right hindfoot or midfoot to suggest osteomyelitis. There are no fractures or suspicious osseous lesions. There is a tiny corticated ossicle just inferior to the tip of the medial malleolus, most likely the sequela of remote trauma/avulsive injury. Changes of mild osteoarthritis are noted in the tibiotalar, calcaneocuboid, talonavicular, and subtalar joints. No ankle joint effusion is seen. Soft tissues: There is circumferential subcutaneous fat stranding and skin thickening in the visualized distal calf, about the ankle, and along the dorsum of the hindfoot and midfoot, which can be seen with cellulitis or edema in the appropriate clinical setting. There is no rim enhancing organized fluid collection to suggest abscess. Small foci of soft tissue swelling with coalescent fluid density in the skin overlying the lateral malleolus and medial aspect of the mid calf suggest some superficial blistering or possibly developing phlegmon. This fluid is not well organized and does not have rim enhancement. There is no soft tissue emphysema. IMPRESSION: 1. No evidence of osteomyelitis or abscess in the right ankle. 2. Extensive skin thickening and subcutaneous fat stranding throughout the right ankle and in the visualized right calf and foot which can be seen with edema or cellulitis in the appropriate clinical setting. 3. Areas of swelling and fluid in the skin overlying the right lateral malleolus and in the right medial mid calf could represent blistering or possibly developing phlegmon. Correlate with physical examination. Dictated and Authenticated by: Ankita Knutson MD. Ordering:ALEXEI Macias MD
== END 2021-12-22 10:34 | disposition home or self-care (01) ==
PROVIDERS: Emergency Provider Emergency Medicine; PCP Family Medicine
DX: S91.001A Unspecified open wound, right ankle, initial encounter (principal); L03.115 Cellulitis of right lower limb; E11.9 Type 2 diabetes mellitus without complications; I10 Essential (primary) hypertension; Z79.4 Long term (current) use of insulin; Z79.01 Long term (current) use of anticoagulants; Z87.891 Personal history of nicotine dependence; X58.XXXA Exposure to other specified factors, initial encounter
CPT/HCPCS: 99285; 73701; 99284; J3490

== ENCOUNTER 2022-03-11 16:35 | Outpatient (REF) | payer BC, SELFPAY | END 2022-03-11 16:36 | disposition home or self-care (01) | LOC: LBN 16:35 | PROVIDERS: PCP Family Medicine; Visit Provider Family Medicine | DX: L97.919 Non-pressure chronic ulcer of unspecified part of right lower leg with unspecified severity (principal); L97.929 Non-pressure chronic ulcer of unspecified part of left lower leg with unspecified severity | CPT/HCPCS: 87077; 87070; 87186 ==

== ENCOUNTER 2022-06-10 16:27 | Outpatient (CLI) | payer BC, SELFPAY ==
--- NOTE | 2022-06-10 11:42 | DI.RAD_ITS ---
Exam(s) XR CHEST 2V PA LATERAL EXAM: XR CHEST 2V PA LATERAL CLINICAL HISTORY: Likely acute CHF, I50.9 TECHNIQUE: 2D digital imaging was performed. COMPARISON: CR CHEST 2 VIEWS PA,LAT from 09/23/2011 CR XR CHEST 2V PA LATERAL from 12/26/2020 FINDINGS: HEART: Mildly enlarged. Aorta: Not dilated. PULMONARY VASCULATURE: Prominent. LUNGS: Diffuse interstitial changes similar to prior. No definite superimposed pulmonary edema. PLEURAL SPACE: No pleural effusion or pneumothorax. BONE:Unremarkable for age. IMPRESSION: Chronic interstitial changes. No acute abnormality. DATA REPOSITORY: RADIATION DOSE DELIVERED:
== END 2022-06-10 16:47 ==
LOC: DI 16:28
PROVIDERS: PCP Family Medicine; Visit Provider Family Medicine
DX: I50.9 Heart failure, unspecified (principal); I51.7 Cardiomegaly; J84.89 Other specified interstitial pulmonary diseases
CPT/HCPCS: 71046

== ENCOUNTER 2022-06-10 17:07 | Outpatient (CLI) | payer BC, SELFPAY ==
[2022-06-10 12:52] LABS: ALT 68 U/L (16-63); AST 29 U/L (15-37); Alkaline Phosphatase 89 U/L (46-116); Anion Gap 9.1 mmol/L (3-11); BUN 28 mg/dL (7-18); Bilirubin, Total 0.6 mg/dL (0.2-1.0); CO2 24.9 mmol/L (21.0-32.0); CREATININE 1.5 mg/dL (0.70-1.30); Calcium 8.5 mg/dL (8.5-10.1); Chloride 98 mmol/L (98-107); Estimated GFR 51.67 (mL/min/1.73m2); Glucose 384 mg/dL (74-106); Potassium 4.7 mmol/L (3.5-5.1); Sodium 132 mmol/L (136-145); Total Protein 7.1 g/dL (6.4-8.2)
[2022-06-10 13:23] LABS: NT-proBNP 1030 pg/mL (<300)
== END 2022-06-10 17:08 | disposition home or self-care (01) ==
LOC: LBO 17:08
PROVIDERS: PCP Family Medicine; Visit Provider Family Medicine
DX: I50.9 Heart failure, unspecified (principal); R06.02 Shortness of breath; R60.0 Localized edema
CPT/HCPCS: 36415; 80053; 83880

== ENCOUNTER 2022-07-17 03:14 | Outpatient (CLI) | payer BC, SELFPAY ==
[2022-07-17] MEDS: Albuterol HFA 18 GM 200 PUFF INH IH (09:07)
[2022-07-17] MEDS: Inhaler, Assist Device 1 EACH MC (09:07)
--- NOTE | 2022-07-18 13:12 | W.PFT ---
Date of service: 07/17/22 Time of Service: 07:58 Pulmonary Function Test Result Indications: Dyspnea Interpretation Spirometry: There is no airflow limitation. There is restrictive appearing spirometry. There is no significant bronchodilator response. Impression Restrictive appearing spirometry, which may be due to pseudo-restriction from obesity, ILD or neuromuscular weakness. Can consider PFT's with lung volumes for furtehr evaluation. Clinical Correlation therefore is recommended.
== END 2022-07-17 03:15 | disposition home or self-care (01) ==
LOC: RT 03:14
PROVIDERS: PCP Family Medicine; Visit Provider Family Medicine
DX: R06.09 Other forms of dyspnea (principal)
CPT/HCPCS: 94060

== ENCOUNTER 2022-07-27 10:28 | Emergency (ER) | payer BC, SELFPAY ==
[2022-07-27 10:31] VITALS: BP 100/54; PULSE 85; RESP 20; TEMP 36.3; O2SAT 90
--- NOTE | 2022-07-27 10:49 | ED.GENADUL_ITS ---
Discharge Plan Disposition Patient Disposition: Home Condition: Improving Discharge Details Clinical Impression: Paronychia of finger of left hand, Chronic venous stasis dermatitis of lower extremity, Chronic shortness of breath Primary Care Provider: Se Alva ED Provider: Yelena Michelle Home Meds and New Rx's Prescriptions: Continued (DME) Dexcom G7 Hotel Concierge Misc See Rx Instructions .Route Qty: 1 0RF Rx Instructions: As directed prn,: Dx: E11.49, on insulin, to keep HbA1c less than 8% (DME) Dexcom G7 Sensor Device See Rx Instructions .Route Qty: 1 6RF Rx Instructions: As directed prn, Dx: E11.49, on insulin to keep HbA1c less than 8% furosemide 80 mg tablet 80 mg PO DAILY Qty: 60 0RF Eliquis 5 mg tablet 5 mg PO BID Qty: 180 3RF Hold Instructions: Home Medication placed on hold at Doctor's office (DME) FreeStyle Lite Strips Strip 1 ea Miscellaneous DAILY Qty: 180 3RF Rx Instructions: For DM to keep A1C at or below 7.0, test BID; E11.49 (DME) lancets [FreeStyle Lancets] 28 gauge misc 1 ea Miscellaneous DAILY Qty: 180 3RF Rx Instructions: For DM E11.65 to maintain A1C at or below 7.0, test BID (DME) pen needle, diabetic [Comfort EZ Pen Guthrie] 32 gauge x 5/32 needle See Dose Instructions .ROUTE .MEDSUPPLY Qty: 100 3RF Dose Instruction: As directed Rx Instructions: Daily to keep HbA1c below 6.5% semaglutide 14 mg tablet 14 mg PO DAILY Qty: 90 3RF metoprolol succinate 50 mg tablet extended release 24 hr 100 mg PO DAILY Qty: 90 3RF insulin glargine [Lantus Solostar U-100 Insulin] 100 unit/mL (3 mL) insulin pen 50 unit SC DAILY Qty: 15 11RF albuterol sulfate 90 mcg/actuation HFA aerosol inhaler 2 puff inhalation Q6H PRN (Reason: shortness of breath or wheezing) Qty: 8.5 6RF metformin 1,000 mg tablet 1,000 mg PO BID Qty: 180 3RF No Action lisinopril-hydrochlorothiazide [Zestoretic] 20-25 mg tablet 1 tab PO DAILY Qty: 90 3RF (DME) circaids See Rx Instructions .Route .MEDSUPPLY Qty: 1 0RF Rx Instructions: As directed atorvastatin [Lipitor] 40 mg tablet 40 mg PO DAILY Qty: 90 3RF Rx Instructions: reduce risk of cardiovascular disease with diabetes E11.9 pregabalin 300 mg capsule 300 mg PO BID Qty: 180 3RF Discharge Instructions Instructions: Paronychia (ED), Chronic Wound Care (ED), Stasis Dermatitis (ED), Dyspnea (ED), Chronic Wounds (ED) Additional Instructions: Your finger swelling and pain is related to an infection with development of pus called a paronychia. This was drained in the emergency department today. Keep wound clean and dry. Cover wound with bandage if risk of contamination. Otherwise you can keep the wound open to air if resting at home to allow edges to dry and heal. Your blood sugar was noted to be high today. The remainder of your blood tests showed that your potassium was slightly elevated and your kidney function was slightly diminished. Be sure to drink plenty of fluids. Take your diabetes medications when you go home today. Keep your legs elevated as much as possible. Follow-up with your scheduled appointment with Dr. Alva tomorrow for dressing of your leg wounds and for reassessment of your left third finger infection. Return immediately to the emergency department if you develop any worsening or new concerning symptoms. Discharge Data Discharge Date/Time-TO BE ENTERED AT DEPARTURE: 07/27/22 12:26 Discharge Physician: Yelena Michelle Medical Decision Making 62-year-old male with a history of morbid obesity, hypertension, hyperlipidemia, type 2 diabetes, obstructive sleep apnea, chronic diabetic neuropathy, chronic venous stasis dermatitis of his bilateral lower extremities, atrial fibrillation on Eliquis, obstructive sleep apnea presents for concern for left third finger infection that he noticed this morning. Patient has moderate edema, erythema and significant tenderness to palpation no martinez to the skin proximal and lateral to the nailbed. Area of fluctuance is most proximal lateral. He has no obvious focal deficits and is neurovascularly intact however range of motion is limited in the distal left third finger secondary to pain and swelling. He also has chronic lower leg wounds related to his venous stasis dermatitis which is being followed by his PCP office with weekly wound care and dressings. He is scheduled to see Dr. Alva tomorrow for dressings on his legs. The wounds appear chronic and there is no obvious area of cellulitis. Of note, patient has stated that he has had ongoing shortness of breath for several months. He states he cannot tolerate CPAP at night. Dr. Alva is following him for this and there was no plan to start O2. He appears labored while speaking and walking. He denies any new fever, cough, chest pain. His lungs are clear throughout. As this has been ongoing for several months and no worse than usual, do not see indication for work-up at this time and he will discuss this with his PCP tomorrow. His left third finger was anesthetized with digital block. A #11 scalpel was used to incise the area of fluctuance and a large amount of yellow pus was expressed. Patient felt significantly better. His finger was soaked in saline and Betadine and dressed with antibiotic ointment and gauze tube dressing. As he has no surrounding cellulitis or lymphangitis, do not see an indication for oral antibiotics. His fingerstick glucose is 286. Screening labs were obtained and no evidence of DKA. His potassium is 5.2 which is minimally elevated above the cutoff. His VBG and metabolic panel otherwise are reassuring and do not suggest DKA or HHS. Discussed with patient that he has multiple chronic problems that need to be continually addressed but do not see any other acute indication for additional work-up or imaging at this time and he is agreeable. Patient advised to continue to monitor his glucose and take his diabetes meds when he returns home. He has a follow up appointment with his pcp tomorrow for wound check. Usual and customary return precautions given prior to discharge. Medical Records Medical records reviewed: Yes I reviewed the patient's medical records. Lab Data Lab results reviewed: Yes I reviewed the patient's lab results. Labs: Laboratory Tests Range/Units 07/27/22 07/27/22 07/27/22 11:19 11:19 11:19 WBC (4.4-10.8) 10^3/uL 11.06 H RBC (4.36-5.78) 10^6/uL 5.19 Hgb (13.5-17.5) g/dL 14.9 Hct (40.0-50.0) % 44.9 MCV (80-95) fL 87 MCH (27.0-33.0) pg 28.7 MCHC (32.0-36.0) % 33.2 RDW (11.8-14.1) % 15.9 H Plt Count (130-400) 10^3/uL 299 MPV (8.0-11.0) fL 9.9 Immature Gran % 0.5 Neutrophils % 80.4 Lymphocytes % 10.3 Monocytes % 7.2 Eosinophils % 1.1 Basophils % 0.5 Nucleated RBC % (0.0-0.3) % 0.0 Absolute Neutrophils (1.2-6.7) 10^3/uL 8.89 H Absolute Lymphocytes (1.2-3.4) 10^3/uL 1.14 L Absolute Monocytes (0.1-0.8) 10^3/uL 0.80 Absolute Eosinophils (0.0-0.7) 10^3/uL 0.12 Absolute Basophils (0.0-0.2) 10^3/uL 0.06 VBG pH (7.31-7.41) 7.42 H VBG pCO2 (41-51) mmHg 35 L VBG pO2 mmHg 48 VBG HCO3 (23-28) mmol/L 22 L VBG Total CO2 (24-29) mmol/L 20 L VBG O2 Saturation % 85 VBG Base Excess (-2-3) mmol/L -2 Sodium (136-145) mmol/L 135 L Potassium (3.5-5.1) mmol/L 5.2 H Chloride (98-107) mmol/L 101 Carbon Dioxide (21.0-32.0) mmol/L 23.2 Anion Gap (3-11) mmol/L 10.8 BUN (7-18) mg/dL 50 H Creatinine (0.70-1.30) mg/dL 1.8 H Est GFR (CKD-EPI 2020) (mL/min/1.73m2) 41.51 Glucose (74-106) mg/dL 303 H Calcium (8.5-10.1) mg/dL 8.9 HPI General Mode of arrival: ambulatory . Date/Time Provider Initiated Documentation: 07/27/22 10:45 . Limitations to Documentation: no limitations . Information obtained by: patient . HPI Narrative: Patient is a 62-year-old right hand dominant male with a history of morbid obesity, hypertension, hyperlipidemia, type 2 diabetes, obstructive sleep apnea, chronic venous stasis of bilateral lower extremities, atrial fibrillation on Eliquis presents for concern for left third finger infection since this morning. Patient denies any symptoms that he noted last night. Patient states he woke and noted significant pain, redness and swelling to his distal left third finger. States his sugar has been under control, most recent 180. Denies any known fever. Related Data Home Medications Medication Instructions Recorded Confirmed apixaban 5 mg tablet (Eliquis) 5 mg PO BID #180 tabs 04/30/21 08/05/22 blood sugar diagnostic (FreeStyle #180 strips 04/30/21 08/05/22 Lite Strips) lancets 28 gauge (FreeStyle #180 ea 04/30/21 08/05/22 Lancets) pen needle, diabetic 32 gauge x #100 ea 06/20/21 08/05/22 (Comfort EZ Pen Guthrie) semaglutide 14 mg tablet 14 mg PO DAILY #90 tabs 03/17/22 08/05/22 metoprolol succinate 50 mg 100 mg PO DAILY #90 tabs 04/18/22 08/05/22 tablet,extended release 24 hr insulin glargine 100 unit/mL (3 50 unit (0.5 mL) subcut DAILY #15 04/28/22 08/05/22 mL) subcutaneous pen (Lantus mL Solostar U-100 Insulin) albuterol sulfate 90 mcg/actuation 2 puff inhalation Q6H PRN 05/16/22 08/05/22 aerosol inhaler shortness of breath or wheezing #8.5 grams blood-glucose meter,continuous #1 ea 05/20/22 08/05/22 (Dexcom G7 Hotel Concierge) blood-glucose sensor (Dexcom G7 #1 ea 05/20/22 08/05/22 Sensor device) metformin 1,000 mg tablet 1,000 mg PO BID #180 tabs 05/27/22 08/05/22 furosemide 80 mg tablet 80 mg PO DAILY #60 tabs 06/10/22 08/05/22 atorvastatin 40 mg tablet (Lipitor) 40 mg PO DAILY #90 tab-caps 07/28/22 08/05/22 lisinopril 20 1 tab PO DAILY #90 tabs 07/28/22 08/05/22 mg-hydrochlorothiazide 25 mg tablet (Zestoretic) circaids #1 ea 08/05/22 08/05/22 pregabalin 300 mg capsule 300 mg PO BID #180 caps 08/07/22 Previous Rx's Medication Instructions Recorded apixaban 5 mg tablet (Eliquis) 5 mg PO BID #180 tabs 04/30/21 blood sugar diagnostic (FreeStyle #180 strips 04/30/21 Lite Strips) lancets 28 gauge (FreeStyle #180 ea 04/30/21 Lancets) pen needle, diabetic 32 gauge x #100 ea 06/20/21 (Comfort EZ Pen Guthrie) semaglutide 14 mg tablet 14 mg PO DAILY #90 tabs 03/17/22 metoprolol succinate 50 mg 100 mg PO DAILY #90 tabs 04/18/22 tablet,extended release 24 hr insulin glargine 100 unit/mL (3 50 unit (0.5 mL) subcut DAILY #15 04/28/22 mL) subcutaneous pen (Lantus mL Solostar U-100 Insulin) albuterol sulfate 90 mcg/actuation 2 puff inhalation Q6H PRN 05/16/22 aerosol inhaler shortness of breath or wheezing #8.5 grams blood-glucose meter,continuous #1 ea 05/20/22 (Dexcom G7 Hotel Concierge) blood-glucose sensor (Dexcom G7 #1 ea 05/20/22 Sensor device) metformin 1,000 mg tablet 1,000 mg PO BID #180 tabs 05/27/22 furosemide 80 mg tablet 80 mg PO DAILY #60 tabs 06/10/22 atorvastatin 40 mg tablet (Lipitor) 40 mg PO DAILY #90 tab-caps 07/28/22 lisinopril 20 1 tab PO DAILY #90 tabs 07/28/22 mg-hydrochlorothiazide 25 mg tablet (Zestoretic) circaids #1 ea 08/05/22 pregabalin 300 mg capsule 300 mg PO BID #180 caps 08/07/22 Allergies Allergy/AdvReac Type Severity Reaction Status Date / Time latex Allergy Intermediate RASH, ITCH Verified 08/05/22 14:19 General Stated Complaint: Cellulitis BAMBI: 3 Review of Systems All systems reviewed & are unremarkable except as noted in HPI and below Constitutional Constitutional: Reports as per HPI, Denies chills and Denies fever(s) Eyes Eyes: Denies blurry vision ENT Ears, Nose, Mouth, and Throat: Denies dizziness, Denies sore throat and Denies throat swelling Cardiovascular Cardiovascular: Denies chest pain and Denies dyspnea Respiratory Respiratory: Denies cough and Denies dyspnea Gastrointestinal Gastrointestinal: Denies abdominal pain, Denies diarrhea and Denies vomiting Genitourinary Genitourinary: Denies hematuria and Denies dysuria Musculoskeletal Musculoskeletal: Denies back pain and Denies numbness Integumentary/Breasts Skin/Breast: Denies lesions and Denies rash Comments: left 3rd finger swelling Neurologic Neurologic: Denies dizziness, Denies localized weakness and Denies numbness Allergic/Immunologic Allergic/Immunologic: Denies throat swelling PFSH All Active Problems (Updated 07/30/22 @ 18:36 by Gabby Antunez RN) Serous bulla of skin (Acute) right heel Unspecified atherosclerosis of [place] arteries of extremities, bilateral legs (A cute) Venous stasis ulcer of left lower leg with edema of left lower leg (Acute) Diabetic toe ulcer (Acute) Paronychia of finger of left hand (Acute) Chronic venous stasis dermatitis of lower extremity (Acute) Chronic shortness of breath (Acute) Lung disease, restrictive (Acute) Leg wound, right (Acute) COVID (Acute ~11/01/21) Diabetic neuropathy (Acute) SARS-CoV-2 positive (Acute) tested positive 06/27/21 Dyspnea on exertion (Acute) Cellulitis (Acute) Lower extremity edema (Acute) Body fluid retention (Acute) Right wrist sprain (Acute) Hematuria (Acute) Carpal tunnel syndrome (Acute 03/09/07) Sciatica (Chronic 07/15/11) INITIALLY L, NOW 02/[address]-lumbar 02/2013: DJD and central spinal stenosis; Paroxysmal atrial fibrillation (Chronic) INITIAL 2004; PAROXYSMAL 09/2011; EF 65% ECHO 10/2011 GOOD; ECHO EF nl, mild LVH 12/201405/28/[address] Tee Pang at [facility]; 24 hr Holter 06/11/15 remains no A Fib 08/18/17 [facility] ablation Leukocytosis, unspecified (Chronic 03/20/15) Hyperlipidemia (Chronic 12/07/02) GOAL 100 DUE TO METABOLIC SYND; NO MEDS 02/2012 Essential hypertension (Chronic 07/15/11) goal <140/80 Diabetes mellitus with neurological manifestations, uncontrolled (Chronic) Feet numb/sensitive; random BS 231 09/2011; A1c 7.7 11/2014; goal 7.0 Current use of [facility] anticoagulation (Chronic 01/24/15) apixaban starting 01/2015 Dr Pang Medical History (Updated 07/30/22 @ 18:36 by Gabby Antunez RN) Atrial fibrillation (09/21/11) Bilateral leg ulcer (~07/2021) 08/07/21 multiple bilateral leg ulcers, be treated at [facility] DJD (degenerative joint disease) Hyperlipidemia Hypertension Morbid obesity Obstructive sleep apnea cpap machine. Polymyalgia rheumatica Tobacco use disorder Type 2 diabetes mellitus Venous stasis dermatitis Venous stasis dermatitis of right lower extremity Surgical History Cardioversion (05/28/15) Dr Pang, [facility], both times; single shock 200 J Cardioversion (09/22/16) Dr Pang, [facility], both times; single shock 200 J Open Carpal Tunnel release (02/14/14) Dr. Fontana; R, then L Open Carpal Tunnel release (03/13/14) Dr. Fontana; R, then L Total replacement of hip (01/22/04) Dr Fontana, [facility] Vasectomy (~1988) Family History Mother Age: 86 Diabetes Father , [place] at age 64. Heart disease Myocardial infarction Sister No problems noted. Brother No problems noted. Brother No problems noted. Social History Smoking/Tobacco Use Status: Former Tobacco Use Smoking risk assessment performed?: Yes Alcohol Intake: never Details: Has in the past, not excessive. 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 Household members: spouse Housing: house Number of Children: 4 Communication Needs: None Current gender identity: male What is your relationship status?: Panel score (0-1 are the most socially isolated patients): 1 What type of physical activity do you participate in: none, walking and other Details: doing chores---1hr in the am, 45 min at night. Tough to do now. 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: No Working smoke detector in home: Yes Fire extinguisher in home: Yes Carbon monox detector in home: Yes Do you feel safe at home: Yes Do you feel safe in your relationship?: Yes Exam Const General: cooperative Nutritional Appearance: obese morbidly obese Orientation: alert, awake and oriented x3 HENMT Head: normal to inspection Mouth: oral mucosae normal Eyes General: appearance normal, both eyes and all related structures Neck Neck: normal visual inspection Resp Effort & Inspection: normal respiratory effort and able to speak in complete sentences Cardio Rate: regular rate Skin General skin exam: no rashes or lesions noted Neuro General: patient alert, patient awake and patient oriented x3 Motor: muscle tone normal throughout Extrem Hand/finger images: 1. Tenderness, moderate edema and erythema. Area of fluctuance most lateral and proximal area. Other: Moderate to severely edematous, indurated bilateral lower extremities with purple and red discoloration with multiple wounds in various stages of healing. There is dried liquid stains on his pants. There are some weeping wounds with serous drainage. No obvious signs of cellulitis. Psych Appearance: grossly normal Affect: normal affect Course Vital Signs Vital signs: Vital Signs Temperature 97.4 F L 07/27/22 10:31 Pulse 85 07/27/22 10:31 Respiratory Rate 20 07/27/22 10:31 Blood Pressure 100/54 L 07/27/22 10:31 Pulse Oximetry 90 L 07/27/22 10:31 Temperature 97.4 F L 07/27/22 10:31 Temperature Source Oral 07/27/22 10:31 Pulse 85 07/27/22 10:31 Respiratory Rate 20 07/27/22 10:31 Blood Pressure 100/54 L 07/27/22 10:31 Blood Pressure Position Sitting 07/27/22 10:31 Pulse Oximetry 90 L 07/27/22 10:31 Oxygen Delivery Method Room Air 07/27/22 10:31 Oxygen Flow Rate 0 07/27/22 10:31 Pain Level 10 07/27/22 10:31 Comment pt states his oxygen saturation readings have been low recently 07/27/22 10:31
[2022-07-27 11:26] LABS: BE (Venous) -2 mmol/L (-2-3); HCO3 (Venous) 22 mmol/L (23-28); O2 Sat (Venous) 85 %; TCO2 (Venous) 20 mmol/L (24-29); pCO2 (Venous) 35 mmHg (41-51); pH (Venous) 7.42 (7.31-7.41); pO2 (Venous) 48 mmHg
[2022-07-27 11:29] LABS: Abs Immature Grans 0.06 10^3/uL (0.0-0.06); Absolute Basophil Count 0.06 10^3/uL (0.0-0.2); Absolute Eosinophil Count 0.12 10^3/uL (0.0-0.7); Absolute Lymphocyte Count 1.14 10^3/uL (1.2-3.4); Absolute Neutrophil Count 8.89 10^3/uL (1.2-6.7); Basophils % 0.5; Eosinophils % 1.1; HCT 44.9 % (40.0-50.0); HGB 14.9 g/dL (13.5-17.5); Immature Grans % 0.5; Lymphocytes % 10.3; MCH 28.7 pg (27.0-33.0); MCHC 33.2 % (32.0-36.0); MCV 87 fL (80-95); MPV 9.9 fL (8.0-11.0); Monocytes % 7.2; Neutrophils % 80.4; Platelet Count 299 10^3/uL (130-400); RBC 5.19 10^6/uL (4.36-5.78); RDW 15.9 % (11.8-14.1); RDW-SD 49.5 fL; WBC 11.06 10^3/uL (4.4-10.8)
[2022-07-27] MEDS: HYDROcodone 5/Acetaminophen 325 TAB PO (11:39)
[2022-07-27 11:42] LABS: Anion Gap 10.8 mmol/L (3-11); BUN 50 mg/dL (7-18); CO2 23.2 mmol/L (21.0-32.0); CREATININE 1.8 mg/dL (0.70-1.30); Calcium 8.9 mg/dL (8.5-10.1); Chloride 101 mmol/L (98-107); Estimated GFR 41.51 (mL/min/1.73m2); Glucose 303 mg/dL (74-106); Potassium 5.2 mmol/L (3.5-5.1); Sodium 135 mmol/L (136-145)
[2022-07-27] MEDS: Bacitracin 1 PACKET (11:55)
== END 2022-07-27 12:26 | disposition home or self-care (01) ==
PROVIDERS: Emergency Provider Physician Assistant; PCP Family Medicine
DX: E11.21 Type 2 diabetes mellitus with diabetic nephropathy (principal); L03.012 Cellulitis of left finger; I87.2 Venous insufficiency (chronic) (peripheral); R06.02 Shortness of breath; I48.91 Unspecified atrial fibrillation; Z79.899 Other long term (current) drug therapy
CPT/HCPCS: 36416; 80048; 82805; 82962; 99284; 85025

== ENCOUNTER 2022-07-28 11:37 | Outpatient (REF) | payer BC, SELFPAY | END 2022-07-28 11:38 | disposition home or self-care (01) | LOC: LBN 11:37 | PROVIDERS: PCP Family Medicine; Visit Provider Family Medicine | DX: L97.411 Non-pressure chronic ulcer of right heel and midfoot limited to breakdown of skin; L97.521 Non-pressure chronic ulcer of other part of left foot limited to breakdown of skin; E11.621 Type 2 diabetes mellitus with foot ulcer | CPT/HCPCS: 87077; 87070; 87186 ==

== ENCOUNTER 2022-12-26 11:29 | Inpatient (IN) | payer BC, SELFPAY ==
[2022-12-26] VITALS (38 sets, daily range): BP systolic 56–150; BP diastolic 26–125; PULSE 68–130; RESP 11–30; TEMP 36.4–36.5; O2SAT 83–96
--- NOTE | 2022-12-26 | DI.US_ITS ---
APPROVED REPORT EXAM: Comprehensive 2D, Doppler, and color-flow Echocardiogram Patient Location: ER Room/Bed: 1 Solicitor Patent: Angelo Shane RDCS (AE) Indications: fluid overload Other Information Study Quality: Adequate. Technically limited study due to body habitus. Conclusion Mild concentric left ventricular hypertrophy. Ejection fraction is 50 to 55%. The left ventricle ap pears compressed by the very large right ventricle. No segmental wall motion abnormalities are ident ified Right ventricle is severely dilated and hypocontractile Left atrial size is normal. The right atrium is moderately enlarged Aortic valve is sclerotic and probably trileaflet without stenosis or regurgitation There is no mitral valvular disease There is moderate to severe tricuspid regurgitation. Estimated right ventricular systolic pressure i s 79 mmHg consistent with severe pulmonary hypertension Wall motion Left Ventricle The left ventricle is normal size. Left ventricular systolic function is mildly decreased. Mild chika ntric left ventricular hypertrophy. No segmental wall motion abnormalities There is no ventricular se ptal defect visualized. LVEF is 50-55%. Right Ventricle Right ventricle is severely dilated. Severely reduced right ventricular systolic function Atria The left atrium size is normal. Right atrium is moderately dilated. The interatrial septum is intact with no evidence for an atrial septal defect. Aortic Valve The Aortic valve is sclerotic. Aortic valve is probably trileaflet. There is no aortic valvular steno sis. No aortic regurgitation is present. Mitral Valve The mitral valve is normal in structure. No evidence of mitral valve stenosis. There is no mitral jacque ve regurgitation noted. Tricuspid Valve The tricuspid valve is normal in structure. There is no tricuspid valve stenosis. Moderate to severe tricuspid regurgitation. Pulmonic Valve The pulmonary valve is normal in structure. There is no pulmonic valvular stenosis. There is no pulmo adriana valvular regurgitation. Great Vessels The aortic root is normal in size. The ascending aorta is mildly dilated. Aortic arch is not well vis ualized. IVC is normal in size and collapses >50% with inspiration. Pericardium There is no pericardial effusion. 2D Dimensions IVSD d PLAX 1.22 cm M: 0.6-1.2 Ao Root d 3.38 cm M: 3.1 - 3.7 LVPW d PLAX 1.26 cm M: 0.6 - 1.2 Ao Asc Diam d 3.55 cm M: 2.6 - 3.4 LVID d PLAX 4.49 cm M: 4.2 - 5.8 LVDs 3.49 cm M: 2.5 - 4.0 LV EF Teichholz 45.0 % FS 22.21 % LV EDV (Teich) 92.0 mL LV ESV (Teich) 50.7 mL Stroke Vol Index (Teich) 15.85 M-Mode TAPSE 1.65 cm (M/F) >1.7 Auto EF LV EDV A4C 76.6 mL LV EDV A2C 124.4 mL LV EDV BP 98.8 mL LV ESV A4C 42.1 mL LV ESV A2C 66.6 mL LV ESV BP 53.8 mL LVEF(%) A4C 45.0 % LVEF(%) A2C 46.5 % LVEF(%) BP 45.6 % LV SV A4C 34.5 ml LV SV A2C 57.8 ml LV SV BP 45.0 ml LV CO A4C 4.4 L/min LV CO A2C 6.4 L/min LV CO BP 5.4 L/min HR A4C 126.32 BPM HR A2C 110.43 BPM LV EDV Index (BP) LA Volume LA Length A4C 4.4 cm LA Length A2C LA Area A4C s 9.10 cm2 LA Area A2C s LA Vol A4C A-L 15.94 mL LA Vol A2C A-L LA Vol Biplane A-L LA Vol A4C MOD 14.9 mL LA Vol A2C MOD LA Vol BP MOD RA Volume RA Area A4C 20.9 cm2 RA ESV A4C (A-L) 62.7mL RA Vol/BSA A4C A-L RA Length A4C 5.9 cm RA ESV A4C (MOD) 62.6mL LV Diastology MV E' medial 0.078 (>0.07 m/s) MV E' lateral 0.098 (>0.1 m/s) Aortic Valve AoV Vmax 2.02 m/s LVOT Vmax 1.18 m/s AoV Peak Grad 16.4 mmHg LVOT Peak Grad 5.6 mmHg AoV Area (Vmax) 1.42 cm2 LVOT VTI 0.195 m AoV VTI 0.383 m LVOT Mean Grad 4.0 mmHg AoV Mean Vitaly. 1.37 m/s LVOT SV 47.28 mL AoV Mean Grad 8.7 mmHg LVOT Diam s 1.75 cm AoV Area (VTI) 1.24 cm2 Velocity Ratio 0.58 Pulmonary Valve PV Vmax 0.89 (0.5-1.5 m/s) RVOT Vmax 0.52 m/s PV Peak Grad 3.2 mmHg RVOT Peak Gr. 1.1 mmHg PV Mean Vitaly 0.61 m/s RVOT VTI 0.061 m PV Mean Grad 1.7 mmHg RVOT Mean Gr. 0.6 mmHg Tricuspid Valve RA Pressure 3.00 mmHg TR Vmax 4.35 m/s TR Peak Grad 75.6 mmHg RVSP (TR) 78.7 mmHg
--- NOTE | 2022-12-26 11:30 | RT.EKG_ITS ---
APPROVED REPORT Exam: Resting ECG Reason for Exam: confused Patient Location: E HR:108 bpm ECG Measurements Heart Rate 108 AXIS MD [id number] P [id number] QRSd 105 QRS -63 QT 350 T 75 QTc 471 Conclusion Atrial fibrillation...V-rate 79-144, irreg A-activity Left ventricular hypertrophy...multiple LVH criteria Inferior infarct, old...Q >35mS, II III aVF
--- NOTE | 2022-12-26 11:45 | DI.RAD_ITS ---
Exam(s) XR PORTABLE CHEST AP EXAM: XR PORTABLE CHEST AP CLINICAL HISTORY: SOB. TECHNIQUE: 2D digital imaging was performed. COMPARISON: CR CHEST 2 VIEWS PA,LAT from 09/23/2011 CR XR CHEST 2V PA LATERAL from 12/26/2020 CR XR CHEST 2V PA LATERAL from 06/10/2022 FINDINGS: Single AP portable view. Mild cardiomegaly again noted. Mediastinum unchanged. Extensive bilateral interstitial disease again noted, appearing unchanged from the previous study of June 2022. Slightly increased markings in the left parahilar region are unchanged. No pleural effu sions. These findings were not evident in 2011. There evident on chest x-ray of December 2020 IMPRESSION: No improvement in the extensive bilateral interstitial disease. No associated pleural effusions.Card iomegaly again noted. DATA REPOSITORY: RADIATION DOSE DELIVERED:
--- NOTE | 2022-12-26 11:52 | W.ED.GENAD ---
Discharge Plan Disposition Patient Disposition: Admit to [facility] Condition: Serious Discharge Details Clinical Impression: CHF exacerbation, Hypoxia Admit Date/Time: 12/26/22 14:50 Admit Provider: Rajni Valdez Attending Provider: Rajni Valdez Primary Care Provider: Se Alva ED Provider: Flor Murray Discharge Data Discharge Date/Time-TO BE ENTERED AT DEPARTURE: 12/26/22 16:30 Medical Decision Making 62-year-old male presents to the ER via POV from his applications support lead office visit with chief complaint of shortness of breath, he reports that he is dyspneic on exertion after walking approximately 20 feet. Does have a history of morbid obesity, type 2 diabetes mellitus, venous stasis dermatitis bilateral leg ulcers, polymyalgia rheumatica, A-fib, hypertension and hyperlipidemia does take Eliquis daily. He also takes metoprolol. He did not take his furosemide 80 mg this morning. Patient states that he was taking 40 mg daily last week and this week he has upped his dose to 80 mg a day. Upon arrival he is 87% on room air heart rate is 120s in atrial fibrillation. He does not normally wear oxygen at home. He is 94% on 2.5 L n/c. 1430: Spoke with Dr. Valdez regarding patient case and details she agrees to accept patient for admission for CHF exacerbation. 13 37: Informed by licensed staff mft that patient was ambulatory on 2 L nasal cannula and desatted to 86%. Discussed plan of care with patient who agrees with plan of care. He is hesitant to be admitted at this time however after further explanation he agrees. Patient is to be admitted for hypoxia CHF exacerbation Medical Records Medical records reviewed: Yes I reviewed the patient's medical records. Lab Data Lab results reviewed: Yes I reviewed the patient's lab results. Labs: Laboratory Tests Range/Units 12/26/22 12/26/22 12/26/22 11:50 11:50 12:00 WBC (4.4-10.8) 10^3/uL 12.24 H RBC (4.36-5.78) 10^6/uL 5.53 Hgb (13.5-17.5) g/dL 15.8 Hct (40.0-50.0) % 48.7 MCV (80-95) fL 88 MCH (27.0-33.0) pg 28.6 MCHC (32.0-36.0) % 32.4 RDW (11.8-14.1) % 18.2 H Plt Count (130-400) 10^3/uL 311 MPV (8.0-11.0) fL 9.6 Immature Gran % 0.7 Neutrophils % 72.0 Lymphocytes % 18.3 Monocytes % 6.9 Eosinophils % 1.6 Basophils % 0.5 Nucleated RBC % (0.0-0.3) % 0.0 Absolute Neutrophils (1.2-6.7) 10^3/uL 8.81 H Absolute Lymphocytes (1.2-3.4) 10^3/uL 2.24 Absolute Monocytes (0.1-0.8) 10^3/uL 0.84 H Absolute Eosinophils (0.0-0.7) 10^3/uL 0.20 Absolute Basophils (0.0-0.2) 10^3/uL 0.06 VBG pH (7.31-7.41) 7.45 H VBG pCO2 (41-51) mmHg 34 L VBG pO2 mmHg 65 VBG HCO3 (23-28) mmol/L 24 VBG Total CO2 (24-29) mmol/L 20 L VBG O2 Saturation % 93 VBG Base Excess (-2-3) mmol/L 0 Sodium (136-145) mmol/L 135 L Potassium (3.5-5.1) mmol/L 4.4 Chloride (98-107) mmol/L 100 Carbon Dioxide (21.0-32.0) mmol/L 22.8 Anion Gap (3-11) mmol/L 12.2 H BUN (7-18) mg/dL 28 H Creatinine (0.70-1.30) mg/dL 1.5 H Est GFR (CKD-EPI 2020) (mL/min/1.73m2) 51.67 Glucose (74-106) mg/dL 266 H Calcium (8.5-10.1) mg/dL 8.9 Magnesium (1.8-2.4) mg/dL 1.9 Total Bilirubin (0.2-1.0) mg/dL 1.0 AST (15-37) U/L 23 ALT (16-63) U/L 32 Alkaline Phosphatase (46-116) U/L 93 Troponin I (<or=60) ng/L < 50 NT-Pro-B Natriuret Pep (<300) pg/mL 1825 H Cancelled Total Protein (6.4-8.2) g/dL 7.8 Albumin (3.4-5.0) g/dL 3.2 L COVID-19 Source SARS-CoV-2 (PCR) (Negative) Range/Units 12/26/22 13:38 WBC (4.4-10.8) 10^3/uL RBC (4.36-5.78) 10^6/uL Hgb (13.5-17.5) g/dL Hct (40.0-50.0) % MCV (80-95) fL MCH (27.0-33.0) pg MCHC (32.0-36.0) % RDW (11.8-14.1) % Plt Count (130-400) 10^3/uL MPV (8.0-11.0) fL Immature Gran % Neutrophils % Lymphocytes % Monocytes % Eosinophils % Basophils % Nucleated RBC % (0.0-0.3) % Absolute Neutrophils (1.2-6.7) 10^3/uL Absolute Lymphocytes (1.2-3.4) 10^3/uL Absolute Monocytes (0.1-0.8) 10^3/uL Absolute Eosinophils (0.0-0.7) 10^3/uL Absolute Basophils (0.0-0.2) 10^3/uL VBG pH (7.31-7.41) VBG pCO2 (41-51) mmHg VBG pO2 mmHg VBG HCO3 (23-28) mmol/L VBG Total CO2 (24-29) mmol/L VBG O2 Saturation % VBG Base Excess (-2-3) mmol/L Sodium (136-145) mmol/L Potassium (3.5-5.1) mmol/L Chloride (98-107) mmol/L Carbon Dioxide (21.0-32.0) mmol/L Anion Gap (3-11) mmol/L BUN (7-18) mg/dL Creatinine (0.70-1.30) mg/dL Est GFR (CKD-EPI 2020) (mL/min/1.73m2) Glucose (74-106) mg/dL Calcium (8.5-10.1) mg/dL Magnesium (1.8-2.4) mg/dL Total Bilirubin (0.2-1.0) mg/dL AST (15-37) U/L ALT (16-63) U/L Alkaline Phosphatase (46-116) U/L Troponin I (<or=60) ng/L NT-Pro-B Natriuret Pep (<300) pg/mL Total Protein (6.4-8.2) g/dL Albumin (3.4-5.0) g/dL COVID-19 Source Nasal/Nares SARS-CoV-2 (PCR) (Negative) Negative HPI General Mode of arrival: EMS. Date/Time Provider Initiated Documentation: 12/26/22 11:42. Limitations to Documentation: no limitations. Information obtained by: patient, RN notes reviewed and old records reviewed. HPI Narrative: 62-year-old male presents to the ER with a chief complaint of shortness of breath, sent here by his PCP. Does have a past medical history of type 2 diabetes, morbid obesity, venous stasis dermatitis of lower extremities, bilateral leg ulcers, atrial fibrillation, polymyalgia rheumatica obstructive sleep apnea, hypertension hyperlipidemia. Surgical history includes hip replacement discectomy. He presents with 2+ pitting edema erythemic lower extremities that are weeping. He is hypoxic upon arrival. He reports he has exertional dyspnea of approximately 20 feet. Related Data Home Medications Medication Instructions Recorded Confirmed blood sugar diagnostic (FreeStyle #180 strips 04/30/21 12/18/22 Lite Strips) lancets 28 gauge (FreeStyle #180 ea 04/30/21 12/18/22 Lancets) semaglutide 14 mg tablet 14 mg PO DAILY #90 tabs 03/17/22 12/26/22 insulin glargine 100 unit/mL (3 50 unit (0.5 mL) subcut DAILY #15 04/28/22 12/26/22 mL) subcutaneous pen (Lantus mL Solostar U-100 Insulin) albuterol sulfate 90 mcg/actuation 2 puff inhalation Q6H PRN 05/16/22 12/26/22 aerosol inhaler shortness of breath or wheezing #8.5 grams metformin 1,000 mg tablet 1,000 mg PO BID #180 tabs 05/27/22 12/26/22 atorvastatin 40 mg tablet (Lipitor) 40 mg PO DAILY #90 tab-caps 07/28/22 12/26/22 lisinopril 20 1 tab PO DAILY #90 tabs 07/28/22 12/26/22 mg-hydrochlorothiazide 25 mg tablet (Zestoretic) circaids #1 ea 08/05/22 12/18/22 pen needle, diabetic 32 gauge x #100 ea 08/11/22 12/18/22 (Comfort EZ Pen [place]) apixaban 5 mg tablet (Eliquis) 5 mg PO BID #180 tabs 08/25/22 12/26/22 blood-glucose meter,continuous #1 ea 09/16/22 12/18/22 (Dexcom G7 Building Trades Instructor) empagliflozin 10 mg tablet 10 mg PO DAILY #90 tabs 09/18/22 12/26/22 (Jardiance) blood-glucose sensor (Dexcom G7 #1 ea 11/04/22 12/18/22 Sensor device) metoprolol succinate 100 mg 100 mg PO DAILY #90 tabs 11/04/22 12/26/22 tablet,extended release 24 hr furosemide 80 mg tablet 40 mg PO DAILY 12/18/22 12/26/22 pregabalin 300 mg capsule 300 mg PO DAILY PRN neuropathic 12/18/22 12/26/22 pain #180 caps Previous Rx's Medication Instructions Recorded blood sugar diagnostic (FreeStyle #180 strips 04/30/21 Lite Strips) lancets 28 gauge (FreeStyle #180 ea 04/30/21 Lancets) semaglutide 14 mg tablet 14 mg PO DAILY #90 tabs 03/17/22 insulin glargine 100 unit/mL (3 50 unit (0.5 mL) subcut DAILY #15 04/28/22 mL) subcutaneous pen (Lantus mL Solostar U-100 Insulin) albuterol sulfate 90 mcg/actuation 2 puff inhalation Q6H PRN 05/16/22 aerosol inhaler shortness of breath or wheezing #8.5 grams metformin 1,000 mg tablet 1,000 mg PO BID #180 tabs 05/27/22 atorvastatin 40 mg tablet (Lipitor) 40 mg PO DAILY #90 tab-caps 07/28/22 lisinopril 20 1 tab PO DAILY #90 tabs 07/28/22 mg-hydrochlorothiazide 25 mg tablet (Zestoretic) circaids #1 ea 08/05/22 pen needle, diabetic 32 gauge x #100 ea 08/11/22 (Comfort EZ Pen [place]) apixaban 5 mg tablet (Eliquis) 5 mg PO BID #180 tabs 08/25/22 blood-glucose meter,continuous #1 ea 09/16/22 (Dexcom G7 Building Tr[employer] Instructor) empagliflozin 10 mg tablet 10 mg PO DAILY #90 tabs 09/18/22 (Jardiance) blood-glucose sensor (Dexcom G7 #1 ea 11/04/22 Sensor device) metoprolol succinate 100 mg 100 mg PO DAILY #90 tabs 11/04/22 tablet,extended release 24 hr pregabalin 300 mg capsule 300 mg PO DAILY PRN neuropathic 12/18/22 pain #180 caps Allergies Allergy/AdvReac Type Severity Reaction Status Date / Time latex Allergy Intermediate RASH, ITCH Verified 12/26/22 12:09 General Stated Complaint: SOB BAMBI: 2 Review of Systems All systems reviewed & are unremarkable except as noted in HPI and below Cardiovascular Cardiovascular: Reports dyspnea Respiratory Respiratory: Reports as per HPI and Reports dyspnea PFSH All Active Problems (Updated 12/26/22 @ 14:44 by Flor Murray NP) Hypoxia (Acute) CHF exacerbation (Acute) BO (dyspnea on exertion) (Acute) Non-pressure chronic ulcer of other part of left foot with fat layer exposed (Acute) Venous stasis ulcer of right lower leg with edema of right lower leg (Acute) Serous bulla of skin (Acute) right heel Unspecified atherosclerosis of [place] arteries of extremities, bilateral legs (Acute) Venous stasis ulcer of left lower leg with edema of left lower leg (Acute) Diabetic toe ulcer (Acute) Lung disease, restrictive (Acute) Leg wound, right (Acute) COVID (Acute ~11/01/21) Diabetic neuropathy (Acute) SARS-CoV-2 positive (Acute) tested positive 06/27/21 Dyspnea on exertion (Acute) Cellulitis (Acute) Lower extremity edema (Acute) Body fluid retention (Acute) Right wrist sprain (Acute) Hematuria (Acute) Carpal tunnel syndrome (Acute 03/09/07) Sciatica (Chronic 07/15/11) INITIALLY L, NOW 02/[address]-lumbar 02/2013: DJD and central spinal stenosis; Paroxysmal atrial fibrillation (Chronic) INITIAL 2003; PAROXYSMAL 09/2011; EF 65% ECHO 10/2011 GOOD; ECHO EF nl, mild LVH 12/201405/28/[address] 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 Hypertension Tobacco use disorder DJD (degenerative joint disease) Hyperlipidemia Surgical History Vasectomy (~1988) Total replacement of hip (01/22/04) Dr Fontana, [facility] Open Carpal Tunnel release (03/13/14) Dr. Fontana; R, then L Open Carpal Tunnel release (02/14/14) Dr. Fontana; R, then L Cardioversion (09/22/16) Dr Pang, [facility], both times; single shock 200 J Cardioversion (05/28/15) Dr Pang [facility], both times; single shock 200 J Family History Mother Age: 86 Diabetes Father , [place] at age 64. Heart disease Myocardial infarction Sister No problems noted. Brother No problems noted. Brother No problems noted. Social History Smoking/Tobacco Use Status: Former Tobacco Use Smoking risk assessment performed?: Yes Alcohol Intake: never Details: Has in the past, not excessive. 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 Household members: spouse Housing: house Number of Children: 4 Communication Needs: None Current gender identity: male What is your relationship status?: Panel score (0-1 are the most socially isolated patients): 1 What type of physical activity do you participate in: none, walking and other Details: doing chores---1hr in the am, 45 min at night. Tough to do now. 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: No Working smoke detector in home: Yes Fire extinguisher in home: Yes Carbon monox detector in home: Yes Do you feel safe at home: Yes Do you feel safe in your relationship?: Yes Exam Const General: ill appearing acutely (Acute on chronic CHF) and chronically Nutritional Appearance: obese Orientation: alert, awake and oriented x3 Resp Effort & Inspection: able to speak in complete sentences and prolonged expiratory phase Auscultation: diminished lung sounds and wheezes Cardio Rate: tachycardic Skin General skin exam: crusts and other (Bilateral lower extremities 2+ pittin edema and weeping ) Wounds: wounds noted (open sores, ulcers noted to lower bilateral extremities) Extrem General: edema Course Vital Signs Vital signs: Vital Signs Pulse 120 H 12/26/22 11:34 Blood Pressure 136/79 12/26/22 11:34 Pulse Oximetry 87 L 12/26/22 11:34 Pulse 120 H 12/26/22 11:34 Respiratory Effort Short of Breath, Labored 12/26/22 11:37 Blood Pressure 136/79 12/26/22 11:34 Pulse Oximetry 87 L 12/26/22 11:34 Oxygen Delivery Method Room Air 12/26/22 11:34 Oxygen Flow Rate 0 12/26/22 11:34 Pain Level 0 12/26/22 11:34
[2022-12-26 11:58] LABS: Abs Immature Grans 0.09 10^3/uL (0.0-0.06); Absolute Basophil Count 0.06 10^3/uL (0.0-0.2); Absolute Lymphocyte Count 2.24 10^3/uL (1.2-3.4); Basophils % 0.5; Eosinophils % 1.6; HCT 48.7 % (40.0-50.0); HGB 15.8 g/dL (13.5-17.5); Immature Grans % 0.7; Lymphocytes % 18.3; MCH 28.6 pg (27.0-33.0); MCHC 32.4 % (32.0-36.0); MCV 88 fL (80-95); MPV 9.6 fL (8.0-11.0); Monocytes % 6.9; Platelet Count 311 10^3/uL (130-400); RBC 5.53 10^6/uL (4.36-5.78); RDW 18.2 % (11.8-14.1); RDW-SD 55.4 fL; WBC 12.24 10^3/uL (4.4-10.8)
[2022-12-26 11:59] LABS: Absolute Monocyte Count 0.84 10^3/uL (0.1-0.8); Absolute Neutrophil Count 8.81 10^3/uL (1.2-6.7)
[2022-12-26 12:06] LABS: BE (Venous) 0 mmol/L (-2-3); HCO3 (Venous) 24 mmol/L (23-28); O2 Sat (Venous) 93 %; TCO2 (Venous) 20 mmol/L (24-29); pCO2 (Venous) 34 mmHg (41-51); pH (Venous) 7.45 (7.31-7.41); pO2 (Venous) 65 mmHg
[2022-12-26 12:21] LABS: ALT 32 U/L (16-63); AST 23 U/L (15-37); Albumin 3.2 g/dL (3.4-5.0); Alkaline Phosphatase 93 U/L (46-116); Anion Gap 12.2 mmol/L (3-11); BUN 28 mg/dL (7-18); CO2 22.8 mmol/L (21.0-32.0); CREATININE 1.5 mg/dL (0.70-1.30); Calcium 8.9 mg/dL (8.5-10.1); Chloride 100 mmol/L (98-107); Estimated GFR 51.67 (mL/min/1.73m2); Glucose 266 mg/dL (74-106); Magnesium 1.9 mg/dL (1.8-2.4); NT-proBNP 1825 pg/mL (<300); Potassium 4.4 mmol/L (3.5-5.1); Sodium 135 mmol/L (136-145); Total Protein 7.8 g/dL (6.4-8.2); Troponin I < 50 ng/L (<or=60)
[2022-12-26] MEDS: Albuterol/Ipratropium 3 ML UPD VIAL UPD (12:22)
[2022-12-26] MEDS: Furosemide 40 MG/4 ML VIAL IVP (13:00)
[2022-12-26 13:42] LABS: Source Nasal/Nares
[2022-12-26 14:13] LABS: COVID-19 PCR Negative (Negative)
--- NOTE | 2022-12-26 14:55 | HPE_ITS ---
Date of service: 12/26/22 Time of Service: 14:55 Assessment and Plan Assessment and plan (1) CHF exacerbation: Status: Acute Assessment and plan: has been noncompliant with lasix given IV lasix in ED, will refer to obs for diuresis, continue IV bid for now, monitor kidney function and electrolytes closely daily weights, strict I&O continue jardiance and charity I and beta louie echo completed in the emergency department, waiting for the read. last echo 06/29 Conclusion Normal left ventricular wall thickness and chamber size. Ejection fraction is 55%. There are no segmental wall motion abnormalities Right ventricle is moderately enlarged and hypocontractile Right atrium is moderately dilated Left atrial size is normal The aortic valve is sclerotic without stenosis or regurgitation Mild mitral annular calcification. Trace mitral regurgitation Normal tricuspid valve with moderate regurgitation. Estimated right ventricular systolic pressure is 78 mmHg, severe pulmonary hypertension Dilated ascending aorta measuring 3.77 cm (2) Venous stasis ulcer of right lower leg with edema of right lower leg: Status: Acute Assessment and plan: chronic, no sign of infection (3) Venous stasis ulcer of left lower leg with edema of left lower leg: Status: Acute Assessment and plan: chronic, no sign of infection (4) Essential hypertension: Status: Chronic Assessment and plan: blood pressure controlled, continue monitor and home meds. (5) Diabetes mellitus with neurological manifestations, uncontrolled: Status: Chronic Assessment and plan: A1C 12/18 was 8.8, diabetic diet, sliding scale ac/hs continue home regimen (6) Paroxysmal atrial fibrillation: Status: Chronic Assessment and plan: rate controlled, continue apixaban and beta louie. (7) Discharge planning issues: Status: Acute Assessment and plan: dvt prophylaxis- fully anticoagulated on apixaban anticipate discharge to home with no services once medically stable. discussed with DR Valdez History of Present Illness History of Present Illness Chief Complaint: shortness of breath, edema N arrative: This is a 62-year-old male patient past medical history significant for diabetes mellitus type 2 paroxysmal atrial fibrillation on anticoagulation hypertension peripheral edema who presents to the emergency department for evaluation of increased shortness of breath bilateral lower extremity edema. His work-up was most consistent with fluid overload. He underwent an echocardiogram in the emergency department but reading will not be available until December 29. He received IV Lasix and hospitalist admission request was asked. Will be excepted in admission to [facility] for further diuresis and monitoring Review of Systems All systems reviewed & are unremarkable except as noted in HPI and below PFSH All Active Problems (Updated 12/27/22 @ 14:54 by Emmy Harding NP) Discharge planning issues (Acute) Hypoxia (Acute) CHF exacerbation (Acute) BO (dyspnea on exertion) (Acute) Non-pressure chronic ulcer of other part of left foot with fat layer exposed (Acute) Venous stasis ulcer of right lower leg with edema of right lower leg (Acute) Serous bulla of skin (Acute) right heel Unspecified atherosclerosis of [place] arteries of extremities, bilateral legs (Acute) Venous stasis ulcer of left lower leg with edema of left lower leg (Acute) Diabetic toe ulcer (Acute) Lung disease, restrictive (Acute) Leg wound, right (Acute) COVID (Acute ~11/01/21) Diabetic neuropathy (Acute) SARS-CoV-2 positive (Acute) tested positive 06/27/21 Dyspnea on exertion (Acute) Cellulitis (Acute) Lower extremity edema (Acute) Body fluid retention (Acute) Right wrist sprain (Acute) Hematuria (Acute) Carpal tunnel syndrome (Acute 03/09/07) Sciatica (Chronic 07/15/11) INITIALLY L, NOW 02/[address]-lumbar 02/2013: DJD and central spinal stenosis; Paroxysmal atrial fibrillation (Chronic) INITIAL 2003; PAROXYSMAL 09/2011; EF 65% ECHO 10/2011 GOOD; ECHO EF nl, mild LVH 12/201405/28/[address] Tee Pang at [facility]; 24 hr Holter 06/11/15 remains no A Fib 08/18/17 [facility] ablation Leukocytosis, unspecified (Chronic 03/20/15) Hyperlipidemia (Chronic 12/07/02) GOAL 100 DUE TO METABOLIC SYND; NO MEDS 02/2012 Essential hypertension (Chronic 07/15/11) goal <140/80 Diabetes mellitus with neurological manifestations, uncontrolled (Chronic) Feet numb/sensitive; random BS 231 09/2011; A1c 7.7 11/2014; goal 7.0 Current use of detention anticoagulation (Chronic 01/24/15) apixaban starting 01/2015 Dr Pang Medical History (Updated 12/27/22 @ 14:54 by Emmy Harding, [place]) Morbid obesity Type 2 diabetes mellitus Venous stasis dermatitis of right lower extremity Bilateral leg ulcer (~07/2021) 08/07/21 multiple bilateral leg ulcers, be treated at [facility] Venous stasis dermatitis Polymyalgia rheumatica Atrial fibrillation (09/21/11) Obstructive sleep apnea cpap machine. Hypertension Tobacco use disorder DJD (degenerative joint disease) Hyperlipidemia Surgical History Vasectomy (~1988) Total replacement of hip (01/22/04) HERNÁN Gonzalez Open Carpal Tunnel release (03/13/14) Dr. Fontana; R, then L Open Carpal Tunnel release (02/14/14) Dr. Fontana; R, then L Cardioversion (09/22/16) HERNÁN Tirado, both times; single shock 200 J Cardioversion (05/28/15) HERMINIA Tirado, both times; single shock 200 J Family History Mother Age: 86 Diabetes Father , [place] at age 64. Heart disease Myocardial infarction Sister No problems noted. Brother No problems noted. Brother No problems noted. Social History Smoking/Tobacco Use Status: Former Tobacco Use Smoking risk assessment performed?: Yes Alcohol Intake: never Details: Has in the past, not excessive. 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 Household members: spouse Housing: house Number of Children: 4 Communication Needs: None Current gender identity: male What is your relationship status?: Panel score (0-1 are the most socially isolated patients): 1 What type of physical activity do you participate in: none, walking and other Details: doing chores---1hr in the am, 45 min at night. Tough to do now. 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 driver material handler: No Working smoke detector in home: Yes Fire extinguisher in home: Yes Carbon monox detector in home: Yes Do you feel safe at home: Yes Do you feel safe in your relationship?: Yes Meds Allergies and Home Medications Allergies Allergy/AdvReac Type Severity Reaction Status Date / Time latex Allergy Intermediate RASH, ITCH Verified 12/26/22 12:09 Home Medications Medication Instructions Recorded Confirmed Type blood sugar diagnostic (FreeStyle #180 strips 04/30/21 12/18/22 Rx Lite Strips) lancets 28 gauge (FreeStyle #180 ea 04/30/21 12/18/22 Rx Lancets) semaglutide 14 mg tablet 14 mg PO DAILY #90 tabs 03/17/22 12/26/22 Rx insulin glargine 100 unit/mL (3 50 unit (0.5 mL) subcut DAILY #15 04/28/22 12/26/22 Rx mL) subcutaneous pen (Lantus mL Solostar U-100 Insulin) albuterol sulfate 90 mcg/actuation 2 puff inhalation Q6H PRN 05/16/22 12/26/22 Rx aerosol inhaler shortness of breath or wheezing #8.5 grams metformin 1,000 mg tablet 1,000 mg PO BID #180 tabs 05/27/22 12/26/22 Rx atorvastatin 40 mg tablet (Lipitor) 40 mg PO DAILY #90 tab-caps 07/28/22 12/26/22 Rx lisinopril 20 1 tab PO DAILY #90 tabs 07/28/22 12/26/22 Rx mg-hydrochlorothiazide 25 mg tablet (Zestoretic) circaids #1 ea 08/05/22 12/18/22 Rx pen needle, diabetic 32 gauge x #100 ea 08/11/22 12/18/22 Rx 5/32 (Comfort EZ Pen Jackson) apixaban 5 mg tablet (Eliquis) 5 mg PO BID #180 tabs 08/25/22 12/26/22 Rx blood-glucose meter,continuous #1 ea 09/16/22 12/18/22 Rx (Dexcom G7 Supervisor Smoke Control) empagliflozin 10 mg tablet 10 mg PO DAILY #90 tabs 09/18/22 12/26/22 Rx (Jardiance) blood-glucose sensor (Dexcom G7 #1 ea 11/04/22 12/18/22 Rx Sensor device) metoprolol succinate 100 mg 100 mg PO DAILY #90 tabs 11/04/22 12/26/22 Rx tablet,extended release 24 hr furosemide 80 mg tablet 40 mg PO DAILY 12/18/22 12/26/22 History pregabalin 300 mg capsule 300 mg PO DAILY PRN neuropathic 12/18/22 12/26/22 Rx pain #180 caps Exam Const General: ill appearing chronically Nutritional Appearance: obese Orientation: alert, awake and oriented x3 HENMT Head: normal to inspection, normocephalic and atraumatic Chest Chest: normal inspection of the chest Resp Effort & Inspection: able to speak in complete sentences Auscultation: diminished lung sounds, no rhonchi and no wheezes Cardio Rate: regular rate Rhythm: regular rhythm GI Inspection: normal to inspection Palpation: soft Skin General skin exam: crusts and other (Bilateral lower extremities 2+ pittin edema and weeping ) Wounds: wounds noted (open sores, ulcers noted to lower bilateral extremities) Extrem General: edema Results Labs 12/27/22 06:40 12/27/22 06:40 Labs: Laboratory Results - last 24 hr 12/26/22 12/26/22 12/26/22 11:50 11:50 12:00 WBC 12.24 H RBC 5.53 Hgb 15.8 Hct 48.7 MCV 88 MCH 28.6 MCHC 32.4 RDW 18.2 H Plt Count 311 MPV 9.6 Immature Gran % 0.7 Neutrophils % 72.0 Lymphocytes % 18.3 Monocytes % 6.9 Eosinophils % 1.6 Basophils % 0.5 Nucleated RBC % 0.0 Absolute Neutrophils 8.81 H Absolute Lymphocytes 2.24 Absolute Monocytes 0.84 H Absolute Eosinophils 0.20 Absolute Basophils 0.06 VBG pH 7.45 H VBG pCO2 34 L VBG pO2 65 VBG HCO3 24 VBG Total CO2 20 L VBG O2 Saturation 93 VBG Base Excess 0 Sodium 135 L Potassium 4.4 Chloride 100 Carbon Dioxide 22.8 Anion Gap 12.2 H BUN 28 H Creatinine 1.5 H Est GFR (CKD-EPI 2020) 51.67 Glucose 266 H Calcium 8.9 Magnesium 1.9 Total Bilirubin 1.0 AST 23 ALT 32 Alkaline Phosphatase 93 Troponin I < 50 NT-Pro-B Natriuret Pep 1825 H Cancelled Total Protein 7.8 Albumin 3.2 L COVID-19 Source SARS-CoV-2 (PCR) 12/26/22 13:38 WBC RBC Hgb Hct MCV MCH MCHC RDW Plt Count MPV Immature Gran % Neutrophils % Lymphocytes % Monocytes % Eosinophils % Basophils % Nucleated RBC % Absolute Neutrophils Absolute Lymphocytes Absolute Monocytes Absolute Eosinophils Absolute Basophils VBG pH VBG pCO2 VBG pO2 VBG HCO3 VBG Total CO2 VBG O2 Saturation VBG Base Excess Sodium Potassium Chloride Carbon Dioxide Anion Gap BUN Creatinine Est GFR (CKD-EPI 2020) Glucose Calcium Magnesium Total Bilirubin AST ALT Alkaline Phosphatase Troponin I NT-Pro-B Natriuret Pep Total Protein Albumin COVID-19 Source Nasal/Nares SARS-CoV-2 (PCR) Negative Last Vital Signs Temp 36.4 C L 12/26/22 11:56 Pulse 96 H 12/26/22 14:31 Resp 14 12/26/22 14:50 BP 145/125 H 12/26/22 14:31 Pulse Ox 94 12/26/22 14:50 Time Spent Time spent with Patient: 55-74 minutes Time was spent: preparing to see the patient(eg.review tests), obtaining and/or reviewing separately otained hiistory, ordering medications,tests, procedures, indepentently interpreting results and counseling the patient
[2022-12-26 15:17] LABS: Troponin I < 50 ng/L (<or=60)
[2022-12-26] MEDS: Apixaban 5 MG TAB PO (19:19)
[2022-12-26] MEDS: Pregabalin 150 MG CAP 300 MG PO (21:08)
[2022-12-27 05:10] VITALS: BP 114/81; PULSE 86; RESP 16; TEMP 35.9; O2SAT 90
[2022-12-27 07:12] LABS: Abs Immature Grans 0.05 10^3/uL (0.0-0.06); Absolute Basophil Count 0.06 10^3/uL (0.0-0.2); Absolute Eosinophil Count 0.24 10^3/uL (0.0-0.7); Absolute Lymphocyte Count 2.25 10^3/uL (1.2-3.4); Absolute Monocyte Count 0.91 10^3/uL (0.1-0.8); Basophils % 0.5; Eosinophils % 2.2; HCT 45.7 % (40.0-50.0); HGB 14.9 g/dL (13.5-17.5); Immature Grans % 0.5; Lymphocytes % 20.3; MCH 28.9 pg (27.0-33.0); MCHC 32.6 % (32.0-36.0); MCV 89 fL (80-95); MPV 9.5 fL (8.0-11.0); Monocytes % 8.2; Neutrophils % 68.3; Platelet Count 273 10^3/uL (130-400); RBC 5.16 10^6/uL (4.36-5.78); RDW 18.2 % (11.8-14.1)
[2022-12-27 07:17] LABS: Absolute Neutrophil Count 7.58 10^3/uL (1.2-6.7)
[2022-12-27 07:26] VITALS: BP 127/76; PULSE 95; RESP 14; TEMP 36.4; O2SAT 94
[2022-12-27 07:34] LABS: ALT 27 U/L (16-63); AST 20 U/L (15-37); Albumin 2.9 g/dL (3.4-5.0); Alkaline Phosphatase 76 U/L (46-116); BUN 28 mg/dL (7-18); Bilirubin, Total 1.4 mg/dL (0.2-1.0); CREATININE 1.6 mg/dL (0.70-1.30); Calcium 8.8 mg/dL (8.5-10.1); Chloride 102 mmol/L (98-107); Estimated GFR 47.82 (mL/min/1.73m2); Glucose 155 mg/dL (74-106); Potassium 4.3 mmol/L (3.5-5.1); Sodium 137 mmol/L (136-145)
[2022-12-27] MEDS: Metoprolol CR 100 MG TABCR PO (08:26)
[2022-12-27] MEDS: Atorvastatin 40 MG TAB PO (08:26)
[2022-12-27] MEDS: Lisinopril 20 MG TAB PO (08:26)
[2022-12-27] MEDS: Empaglifozin 10 MG TAB PO (08:26)
[2022-12-27] MEDS: Apixaban 5 MG TAB PO ×2 (08:26→19:19)
[2022-12-27] MEDS: Normal Saline Flush 10 ML SYR IVP ×3 (08:26→12:00)
[2022-12-27] MEDS: Insulin Glargine 300 UNITS/3 ML PEN 50 UNITS SC (09:03)
[2022-12-27] MEDS: Furosemide 40 MG/4 ML VIAL IVP ×2 (09:04→12:00)
[2022-12-27] MEDS: Pregabalin 150 MG CAP 300 MG PO (09:05)
[2022-12-27] MEDS: hydroCHLOROthiazide 25 MG TAB PO (09:06)
--- NOTE | 2022-12-27 10:44 | INITIAL_ITS ---
Date of service: 12/27/22 Time of Service: 10:45 Care Management Initial Assmt Initial Assessment REASON FOR HOSPITALIZATION:: Fluid Overload PREVIOUS FUNCTIONAL STATUS/SOCIAL/FAMILY SUPPORTS:: Justin lives in [facility] with his , Jesi. They two sons and one daughter. 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 One of their sons recently moved back in with them, and has been helping out with all of the farm chores. 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 He is independent at baseline with ADLs. CURRENT FUNCTIONAL STATUS:: Veto was sitting up in a chair, having his legs dressed by nursing when CM met with him. He was pleasant and engaged in conversation. He talked a lot about his family farm, and how grateful he is to have his son move back in with them to help with the farming. 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 He does not plan to retire any time soon. He stated that he has been having trouble with his breathing for over a year now, and is wondering if he will need to discharge home with new home O2. Per report, the goal is to wean him off O2; he is currently on 1.5L, and failed his exercise oximetry test. He is open to home O2, if needed. He is looking forward to returning home, but is comfortable with the plan to remain hospitalized at this time. CM will continue to follow. ADVANCE DIRECTIVES:: Not on file; CM will offer forms. Has patient been provided with info about the portal/API?: Yes Did the patient sign up for the portal?: No CODE STATUS:: Full Code INSURANCE COVERAGE / FINANCIAL ISSUES:: BC/BS CURRENT HOME/COMMUNITY SERVICES/EQUIPMENT:: None. PRIMARY CARE PHYSICIAN:: Se Alva POTENTIAL DISCHARGE NEEDS:: Evaluations for further needs, follow up appointments. PATIENT/FAMILY EDUCATION NEEDS:: Review discharge instructions and limitations, discussion of self care needs including ask me three. ANTICIPATED BARRIERS TO DISCHARGE:: None identified. TRANSPORTATION:: Via private vehicle by his . PLAN:: Anticipate Veto will return home once medically cleared. His will drive him home. He will follow up with his PCP and discharge plan of care. CM will continue to follow. PFSH All Active Problems (Updated 10/21/23 @ 14:54 by Emmy Harding NP) Discharge planning issues (Acute) Hypoxia (Acute) CHF exacerbation (Acute) BO (dyspnea on exertion) (Acute) Non-pressure chronic ulcer of other part of left foot with fat layer exposed (Acute) Venous stasis ulcer of right lower leg with edema of right lower leg (Acute) Serous bulla of skin (Acute) right heel Unspecified atherosclerosis of [place] arteries of extremities, bilateral legs (Acute) Venous stasis ulcer of left lower leg with edema of left lower leg (Acute) Diabetic toe ulcer (Acute) Lung disease, restrictive (Acute) Leg wound, right (Acute) COVID (Acute ~11/01/21) Diabetic neuropathy (Acute) SARS-CoV-2 positive (Acute) tested positive 06/27/21 Dyspnea on exertion (Acute) Cellulitis (Acute) Lower extremity edema (Acute) Body fluid retention (Acute) Right wrist sprain (Acute) Hematuria (Acute) Carpal tunnel syndrome (Acute 03/09/07) Sciatica (Chronic 07/15/11) INITIALLY L, NOW 02/[address]-lumbar 02/2013: DJD and central spinal stenosis; Paroxysmal atrial fibrillation (Chronic) INITIAL 2004; PAROXYSMAL 09/2011; EF 65% ECHO 10/2011 GOOD; ECHO EF nl, mild LVH 12/201405/28/[address] Tee Pang at [facility]; 24 hr Holter 06/11/15 remains no A Fib 08/18/17 [facility] ablation Leukocytosis, unspecified (Chronic 03/20/15) Hyperlipidemia (Chronic 12/07/02) GOAL 100 DUE TO METABOLIC SYND; NO MEDS 02/2012 Essential hypertension (Chronic 07/15/11) goal <140/80 Diabetes mellitus with neurological manifestations, uncontrolled (Chronic) Feet numb/sensitive; random BS 231 09/2011; A1c 7.7 11/2014; goal 7.0 Current use of shelter anticoagulation (Chronic 01/24/15) apixaban starting 01/2015 Dr Pang Medical History (Updated 12/27/22 @ 14:54 by Emmy Harding, [place]) Morbid obesity Type 2 diabetes mellitus Venous stasis dermatitis of right lower extremity Bilateral leg ulcer (~07/2021) 08/07/21 multiple bilateral leg ulcers, be treated at [facility] Venous stasis dermatitis Polymyalgia rheumatica Atrial fibrillation (09/21/11) Obstructive sleep apnea cpap machine. Hypertension Tobacco use disorder DJD (degenerative joint disease) Hyperlipidemia Surgical History Vasectomy (~1988) Total replacement of hip (01/22/04) HERNÁN Gonzalez Open Carpal Tunnel release (03/13/14) Dr. Fontana; R, then L Open Carpal Tunnel release (02/14/14) Dr. Fontana; R, then L Cardioversion (09/22/16) HERNÁN Tirado, both times; single shock 200 J Cardioversion (05/28/15) HERMINIA Tirado, both times; single shock 200 J Family History Mother Age: 86 Diabetes Father , [place] at age 64. Heart disease Myocardial infarction Sister No problems noted. Brother No problems noted. Brother No problems noted. Social History Smoking/Tobacco Use Status: Former Tobacco Use Smoking risk assessment performed?: Yes Alcohol Intake: never Details: Has in the past, not excessive. 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 Household members: spouse Housing: house Number of Children: 4 Communication Needs: None Current gender identity: male What is your relationship status?: Panel score (0-1 are the most socially isolated patients): 1 What type of physical activity do you participate in: none, walking and other Details: doing chores---1hr in the am, 45 min at night. Tough to do now. 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 cart driver: No Working smoke detector in home: Yes Fire extinguisher in home: Yes Carbon monox detector in home: Yes Do you feel safe at home: Yes Do you feel safe in your relationship?: Yes
[2022-12-27 12:39] VITALS: PULSE 118; PULSE 120; PULSE 92; PULSE 94; RESP 18; RESP 22; O2SAT 87; O2SAT 90; O2SAT 91
--- NOTE | 2022-12-27 14:34 | W.PM.PROGNOT ---
Date of Service Date of service: 12/27/22 Time of Service: 14:43 Assessment and Plan Assessment and plan (1) CHF exacerbation: Status: Acute Assessment and plan: has been noncompliant with lasix continue IV bid for now, monitor kidney function and electrolytes closely daily weights, strict I&O continue jardiance and charity I and beta louie echo completed thursday, waiting for the read. last echo 06/29 Conclusion Normal left ventricular wall thickness and chamber size. Ejection fraction is 55%. There are no segmental wall motion abnormalities Right ventricle is moderately enlarged and hypocontractile Right atrium is moderately dilated Left atrial size is normal The aortic valve is sclerotic without stenosis or regurgitation Mild mitral annular calcification. Trace mitral regurgitation Normal tricuspid valve with moderate regurgitation. Estimated right ventricular systolic pressure is 78 mmHg, severe pulmonary hypertension Dilated ascending aorta measuring 3.77 cm (2) Venous stasis ulcer of right lower leg with edema of right lower leg: Status: Acute Assessment and plan: chronic, no sign of infection unna boots and outpatient wound care referral (3) Venous stasis ulcer of left lower leg with edema of left lower leg: Status: Acute Assessment and plan: chronic, no sign of infection unna boots and outpatient wound care referral (4) Essential hypertension: Status: Chronic Assessment and plan: blood pressure controlled, continue monitor and home meds. (5) Diabetes mellitus with neurological manifestations, uncontrolled: Status: Chronic Assessment and plan: A1C 12/18 was 8.8, diabetic diet, sliding scale ac/hs continue home regimen (6) Paroxysmal atrial fibrillation: Status: Chronic Assessment and plan: rate controlled, continue apixaban and beta louie. (7) Discharge planning issues: Status: Acute Assessment and plan: dvt prophylaxis- fully anticoagulated on apixaban anticipate discharge to home with no services once medically stable. discussed with DR Valdez Subjective Subjective Patient reports: no new complaints, tolerating liquids well, tolerating a regular diet, shortness of breath (still requiring oxygen) and afebrile Exam Const General: ill appearing chronically Nutritional Appearance: obese Orientation: alert, awake and oriented x3 HENMT Head: normal to inspection, normocephalic and atraumatic Chest Chest: normal inspection of the chest Resp Effort & Inspection: able to speak in complete sentences Auscultation: diminished lung sounds, no rhonchi and no wheezes Cardio Rate: regular rate Rhythm: regular rhythm GI Inspection: normal to inspection Palpation: soft Skin General skin exam: crusts and other (Bilateral lower extremities 2+ pittin edema and weeping ) Wounds: wounds noted (open sores, ulcers noted to lower bilateral extremities) Extrem General: edema Objective Last Vital Signs Temp 36.4 C L 12/27/22 07:26 Pulse 95 H 12/27/22 07:26 Resp 14 12/27/22 07:26 BP 127/76 12/27/22 07:26 Pulse Ox 94 12/27/22 07:26 Laboratory Results - last 24 hr 12/26/22 12/27/22 14:51 06:40 WBC 11.10 H RBC 5.16 Hgb 14.9 Hct 45.7 MCV 89 MCH 28.9 MCHC 32.6 RDW 18.2 H Plt Count 273 MPV 9.5 Immature Gran % 0.5 Neutrophils % 68.3 Lymphocytes % 20.3 Monocytes % 8.2 Eosinophils % 2.2 Basophils % 0.5 Nucleated RBC % 0.0 Absolute Neutrophils 7.58 H Absolute Lymphocytes 2.25 Absolute Monocytes 0.91 H Absolute Eosinophils 0.24 Absolute Basophils 0.06 Sodium 137 Potassium 4.3 Chloride 102 Carbon Dioxide 24.0 Anion Gap 11.0 BUN 28 H Creatinine 1.6 H Est GFR (CKD-EPI 2020) 47.82 Glucose 155 H Calcium 8.8 Total Bilirubin 1.4 H AST 20 ALT 27 Alkaline Phosphatase 76 Troponin I < 50 Total Protein 7.0 Albumin 2.9 L Time Spent with Patient Time Spent with Patient: 25-34 minutes Time was spent: preparing to see the patient(eg.review tests), obtaining and/or reviewing separately otained hiistory, ordering medications,tests, procedures, indepentently interpreting results and counseling the patient
[2022-12-27 21:14] VITALS: BP 106/73; PULSE 96; RESP 18; TEMP 36.3; O2SAT 90
[2022-12-28 07:31] VITALS: BP 109/65; PULSE 74; RESP 18; TEMP 35.6; O2SAT 97
[2022-12-28] MEDS: Normal Saline Flush 10 ML SYR IVP (08:11)
[2022-12-28] MEDS: Atorvastatin 40 MG TAB PO (08:12)
[2022-12-28] MEDS: Insulin Glargine 300 UNITS/3 ML PEN 50 UNITS SC (08:12)
[2022-12-28] MEDS: Pregabalin 150 MG CAP 300 MG PO (08:12)
[2022-12-28] MEDS: Lisinopril 20 MG TAB PO (08:12)
[2022-12-28] MEDS: hydroCHLOROthiazide 25 MG TAB PO (08:12)
[2022-12-28] MEDS: Apixaban 5 MG TAB PO (08:12)
[2022-12-28] MEDS: Metoprolol CR 100 MG TABCR PO (08:13)
[2022-12-28] MEDS: Empaglifozin 10 MG TAB PO (08:13)
[2022-12-28 08:31] LABS: Anion Gap 10.8 mmol/L (3-11); BUN 30 mg/dL (7-18); CO2 25.2 mmol/L (21.0-32.0); CREATININE 1.4 mg/dL (0.70-1.30); Chloride 99 mmol/L (98-107); Estimated GFR 56.13 (mL/min/1.73m2); Glucose 146 mg/dL (74-106); Magnesium 2.2 mg/dL (1.8-2.4); Potassium 4.2 mmol/L (3.5-5.1); Sodium 135 mmol/L (136-145)
[2022-12-28 09:04] VITALS: O2SAT 90
--- NOTE | 2022-12-28 14:45 | DSE_ITS ---
Date of service: 12/28/22 Time of Service: 14:45 DS: Diagnosis Discharge Diagnosis (1) CHF exacerbation: Status: Acute Asessment and Plan: presented to the ED for exacerbation secondary to non compliance with lasix. echocardiogram completed but results still pending and should be reviewed with outpatient team. diuresed with good effect and weaned off oxygen, will double lasix for next 3 days, then resume previous home dose. will need electrolytes and kidney function checked prior to outpatient appointment with pcp (2) Venous stasis ulcer of right lower leg with edema of right lower leg: Status: Acute Asessment and Plan: unna boots placed, will follow up outpatient with wound care, previously established no evidence of infection noted. edema improved with diuresis, elevation and wrapping (3) Venous stasis ulcer of left lower leg with edema of left lower leg: Status: Acute Asessment and Plan: see above (4) Essential hypertension: Status: Chronic Asessment and Plan: blood pressure controlled while hospitalized (5) Diabetes mellitus with neurological manifestations, uncontrolled: Status: Chronic Asessment and Plan: A1C 8.8, continue home regimen, defer chronic disease management to outpatient team (6) Paroxysmal atrial fibrillation: Status: Chronic Asessment and Plan: rate controlled, is fully anticoagulated on apixaban. Discharge Plan Disposition Patient Disposition: Home Condition: Improving Discharge Details Reason For Visit: Fluid Overload Admit Date/Time: 12/26/22 14:50 Admit Provider: Rajni Valdez Attending Provider: Rajni Valdez Primary Care Provider: Se Alva Home Meds and New Rx's Prescriptions: Continued lisinopril-hydrochlorothiazide [Zestoretic] 20-25 mg tablet 1 tab PO DAILY Qty: 90 3RF (DME) circaids See Rx Instructions .Route .MEDSUPPLY Qty: 1 0RF Rx Instructions: As directed Jardiance 10 mg tablet 10 mg PO DAILY Qty: 90 3RF pregabalin 300 mg capsule 300 mg PO DAILY PRN (Reason: neuropathic pain) Qty: 180 3RF furosemide 80 mg tablet 40 mg PO DAILY (DME) FreeStyle Lite Strips Strip 1 ea Miscellaneous DAILY Qty: 180 3RF Rx Instructions: For DM to keep A1C at or below 7.0, test BID; E11.49 (DME) lancets [FreeStyle Lancets] 28 gauge misc 1 ea Miscellaneous DAILY Qty: 180 3RF Rx Instructions: For DM E11.65 to maintain A1C at or below 7.0, test BID semaglutide 14 mg tablet 14 mg PO DAILY Qty: 90 3RF insulin glargine [Lantus Solostar U-100 Insulin] 100 unit/mL (3 mL) insulin pen 50 unit SC DAILY Qty: 15 11RF albuterol sulfate 90 mcg/actuation HFA aerosol inhaler 2 puff inhalation Q6H PRN (Reason: shortness of breath or wheezing) Qty: 8.5 6RF metformin 1,000 mg tablet 1,000 mg PO BID Qty: 180 3RF atorvastatin [Lipitor] 40 mg tablet 40 mg PO DAILY Qty: 90 3RF Rx Instructions: reduce risk of cardiovascular disease with diabetes E11.9 Eliquis 5 mg tablet 5 mg PO BID Qty: 180 3RF Hold Instructions: Home Medication placed on hold at Doctor's office (DME) Dexcom G7 [employer] Misc See Rx Instructions .Route Qty: 1 6RF Rx Instructions: As directed prn,: Dx: E11.49, on insulin, to keep HbA1c less than 8% metoprolol succinate 100 mg tablet extended release 24 hr 100 mg PO DAILY Qty: 90 3RF (DME) Dexcom G7 Sensor Device See Rx Instructions .Route Qty: 1 6RF Rx Instructions: As directed prn, Dx: E11.49, on insulin to keep HbA1c less than 8% No Action (DME) pen needle, diabetic [Comfort EZ Pen [place]] 32 gauge x 5/32 needle See Dose Instructions .ROUTE .MEDSUPPLY Qty: 100 3RF Dose Instruction: As directed Rx Instructions: Daily to keep HbA1c below 6.5% Discharge Instructions Instructions: Heart Failure (DC), Stasis Dermatitis (DC) Additional Instructions: increase your lasix to 40 mg twice daily for 3 days, then resume 40 mg daily elevate your legs during the day to help reduce swelling wear unna boots as directed, please call Thursday morning to see your receiving specialist. you will need to make primary care provider appointment for recheck after hospitalization, please call Thursday to arrange. you should have your lab drawn prior to this appointment. your echo results are not available at discharge, please review with you doctor at your appointment. Stand Alone Forms: Nursing Discharge Form Referrals: Se Alva DO [Primary Care Provider] - (Please call on Thursday for follow up apt within a week) Activity:: Activity as Tolerated Equipment/Supplies:: No Equipment Needed Diet:: Carb Counting Discharge Orders Discharge Orders: Discharge Order (Routine); Ordered 12/28/22 Ordered By: Emmy Harding Other Ambulatory Orders: Basic Metabolic Panel (Routine) Timeframe: 20221231 Location: None Selected Ordered By: Emmy Harding Complete Blood Count w/Diff (Routine) Timeframe: 20221231 Location: None Selected Ordered By: Emmy Harding DS: Summary Time Spent with Patient providing and/or coordinating discharge services: Greater than 30 minutes Status at Discharge Functional status at discharge: independent ambulation Overall status at discharge: patient is progressing back to baseline Mental Status: mental status grossly normal Speech and Movement: speech and movement normal Mood: congruent mood Affect: normal affect Exam Const General: ill appearing chronically Nutritional Appearance: obese Orientation: alert, awake and oriented x3 HENMT Head: normal to inspection, normocephalic and atraumatic Chest Chest: normal inspection of the chest Resp Effort & Inspection: able to speak in complete sentences Auscultation: diminished lung sounds, no rhonchi and no wheezes Cardio Rate: regular rate Rhythm: regular rhythm GI Inspection: normal to inspection Palpation: soft Skin General skin exam: crusts and other (Bilateral lower extremities 2+ pittin edema and weeping ) Lesions: other (unna boots intact bilaterally) Extrem General: edema Psych Mental Status: mental status grossly normal Speech and Movement: speech and movement normal Mood: congruent mood Affect: normal affect DS: Data Vitals/I&O Vitals and I&O: Vital Signs Temperature 35.6 C L 12/28/22 07:31 Temperature Source Tympanic 12/28/22 07:31 Pulse 74 12/28/22 07:31 Pulse Rhythm Irregular 12/28/22 10:44 Pulse 96 H 12/26/22 16:10 Respiratory Rate 18 12/28/22 07:31 Respiratory Effort Normal 12/28/22 10:44 Respiratory Depth Normal 12/28/22 10:44 Respiratory Pattern Normal 12/28/22 10:44 Blood Pressure 109/65 12/28/22 07:31 Blood Pressure Mean 60 12/26/22 16:02 Blood Pressure Position Sitting 12/26/22 11:56 Pulse Oximetry 90 L 12/28/22 09:04 Oxygen Delivery Method Nasal Cannula 12/28/22 09:04 Oxygen Flow Rate 0.5 12/28/22 09:04 Pain Level 0 12/28/22 07:31 Intake & Output 12/27/22 12/28/22 12/28/22 23:59 11:59 23:59 Intake Total 1350 / 1350 1220 / 1220 Output Total 2500 / 5600 1575 / 1575 Balance -1150 / -4250 -355 / -355 Weight 149.3 kg Intake: Oral 1350 / 1350 1220 / 1220 Output: Urine 2500 / 5600 1575 / 1575 Other: Urine Color Yellow Yellow Urine Appearance Cloudy Clear Urine Odor Normal None Stool Size Moderate Stool Characteristics Soft Formed Voiding Methods Urinal Urinal Data Completed and Pending Labs on day of discharge: Labs from last 24 hours 12/28/22 08:00 Sodium 135 L Potassium 4.2 Chloride 99 Carbon Dioxide 25.2 Anion Gap 10.8 BUN 30 H Creatinine 1.4 H Est GFR (CKD-EPI 2020) 56.13 Glucose 146 H Calcium 9.0 Magnesium 2.2 PFSH All Active Problems (Updated 12/27/22 @ 14:54 by Emmy Harding NP) Discharge planning issues (Acute) Hypoxia (Acute) CHF exacerbation (Acute) BO (dyspnea on exertion) (Acute) Non-pressure chronic ulcer of other part of left foot with fat layer exposed (Acute) Venous stasis ulcer of right lower leg with edema of right lower leg (Acute) Serous bulla of skin (Acute) right heel Unspecified atherosclerosis of [place] arteries of extremities, bilateral legs (Acute) Venous stasis ulcer of left lower leg with edema of left lower leg (Acute) Diabetic toe ulcer (Acute) Lung disease, restrictive (Acute) Leg wound, right (Acute) COVID (Acute ~11/01/21) Diabetic neuropathy (Acute) SARS-CoV-2 positive (Acute) tested positive 06/27/21 Dyspnea on exertion (Acute) Cellulitis (Acute) Lower extremity edema (Acute) Body fluid retention (Acute) Right wrist sprain (Acute) Hematuria (Acute) Carpal tunnel syndrome (Acute 03/09/07) Sciatica (Chronic 07/15/11) INITIALLY L, NOW 02/[address]-lumbar 02/2013: DJD and central spinal stenosis; Paroxysmal atrial fibrillation (Chronic) INITIAL 2003; PAROXYSMAL 09/2011; EF 65% ECHO 10/2011 GOOD; ECHO EF nl, mild LV H 12/201405/28/[address] Tee Pang at [facility]; 24 hr Holter 06/11/15 remains no A Fib 08/18/17 [facility] ablation Leukocytosis, unspecified (Chronic 03/20/15) Hyperlipidemia (Chronic 12/07/02) GOAL 100 DUE TO METABOLIC SYND; NO MEDS 02/2012 Essential hypertension (Chronic 07/15/11) goal <140/80 Diabetes mellitus with neurological manifestations, uncontrolled (Chronic) Feet numb/sensitive; random BS 231 09/2011; A1c 7.7 11/2014; goal 7.0 Current use of manager intermediate anticoagulation (Chronic 01/24/15) apixaban starting 01/2015 Dr Pang Medical History (Updated 12/27/22 @ 14:54 by Emmy Harding NP) Morbid obesity Type 2 diabetes mellitus Venous stasis dermatitis of right lower extremity Bilateral leg ulcer (~07/2021) 08/07/21 multiple bilateral leg ulcers, be treated at [facility] Venous stasis dermatitis Polymyalgia rheumatica Atrial fibrillation (09/21/11) Obstructive sleep apnea cpap machine. Hypertension Tobacco use disorder DJD (degenerative joint disease) Hyperlipidemia Surgical History Vasectomy (~1988) Total replacement of hip (01/22/04) Dr Fontana [facility] Open Carpal Tunnel release (03/13/14) Dr. Fontana; R, then L Open Carpal Tunnel release (02/14/14) Dr. Fontana; R, then L Cardioversion (09/22/16) Dr Pang [facility], both times; single shock 200 J Cardioversion (05/28/15) Dr Pang [facility], both times; single shock 200 J Family History Mother Age: 86 Diabetes Father , [place] at age 64. Heart disease Myocardial infarction Sister No problems noted. Brother No problems noted. Brother No problems noted. Social History Smoking/Tobacco Use Status: Former Tobacco Use Smoking risk assessment performed?: Yes Alcohol Intake: never Details: Has in the past, not excessive. 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 Household members: spouse Housing: house Number of Children: 4 Communication Needs: None Current gender identity: male What is your relationship status?: Panel score (0-1 are the most socially isolated patients): 1 What type of physical activity do you participate in: none, walking and other Details: doing chores---1hr in the am, 45 min at night. Tough to do now. 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 peg driver: No Working smoke detector in home: Yes Fire extinguisher in home: Yes Carbon monox detector in home: Yes Do you feel safe at home: Yes Do you feel safe in your relationship?: Yes Time Spent with Patient Time Spent with Patient: 45-69 minutes Time was spent: preparing to see the patient(eg.review tests), [facility] and[facility], ordering medications,tests, procedures, indepentently interpreting results and counseling the patient
--- NOTE | 2022-12-28 15:16 | PDOC.CMDIS ---
Date of service: 12/28/22 Time of Service: 15:16 LACE Index Scoring Tool Questions: Length of Stay (in days): 2 Was the patient admitted via the E.D.?: Yes Comorbidities: Diabetes w/o Complication and Congestive Heart Failure E.D. Visits: 1 Answers: Total Score: 9 Risk of Readmission: Low Risk Care Management Discharge Plan Reason for Hospitalization: Fluid Overload Discharge Plan: Justin returned home today with no new services. His drove him home via private vehicle. He will follow up with his PCP and discharge plan of care. He is happy to be going home. Patient/Family Education Needs: Review discharge instructions and limitations, discussion of self care needs including ask me three.
== END 2022-12-28 15:23 | disposition home or self-care (01) | DRG 292 ==
LOC: ER 14:44 → MS 16:49
PROVIDERS: Nurse Practitioner Acute Care; Admitting Provider Internal Medicine; Emergency Provider Registered Nurse Emergency; PCP Family Medicine; Visit Provider Internal Medicine
DX: I11.0 Hypertensive heart disease with heart failure (principal); L97.819 Non-pressure chronic ulcer of other part of right lower leg with unspecified severity; Z68.41 Body mass index [BMI] 40.0-44.9, adult; L97.829 Non-pressure chronic ulcer of other part of left lower leg with unspecified severity; I50.9 Heart failure, unspecified; E66.01 Morbid (severe) obesity due to excess calories; Z91.148 Patient's other noncompliance with medication regimen for other reason; E11.40 Type 2 diabetes mellitus with diabetic neuropathy, unspecified; E11.65 Type 2 diabetes mellitus with hyperglycemia; I48.0 Paroxysmal atrial fibrillation; I83.018 Varicose veins of right lower extremity with ulcer other part of lower leg; I83.028 Varicose veins of left lower extremity with ulcer other part of lower leg; Z79.01 Long term (current) use of anticoagulants; R09.02 Hypoxemia; I70.203 Unspecified atherosclerosis of native arteries of extremities, bilateral legs; M54.31 Sciatica, right side; M47.816 Spondylosis without myelopathy or radiculopathy, lumbar region; M48.061 Spinal stenosis, lumbar region without neurogenic claudication; E78.5 Hyperlipidemia, unspecified; M35.3 Polymyalgia rheumatica; G47.33 Obstructive sleep apnea (adult) (pediatric); Z87.891 Personal history of nicotine dependence
CPT/HCPCS: 00123; 36415; 36416; 80048; 80053; 82805; 82962; 87635; 93005; 94618; 94640; 96372; 96374; 96376; 99285; J3490; 71045; 83735; 83880; 84484; 85025; 93010; 93306; 94667; 94668; 99223; 99233; 99239; J1940; J7620

== ENCOUNTER 2022-12-31 18:55 | Outpatient (CLI) | payer BC, SELFPAY ==
[2022-12-31 17:19] LABS: Abs Immature Grans 0.11 10^3/uL (0.0-0.06); Absolute Eosinophil Count 0.35 10^3/uL (0.0-0.7); Absolute Lymphocyte Count 2.73 10^3/uL (1.2-3.4); Absolute Neutrophil Count 7.92 10^3/uL (1.2-6.7); Basophils % 0.8; Eosinophils % 2.8; HCT 51.7 % (40.0-50.0); HGB 16.5 g/dL (13.5-17.5); Immature Grans % 0.9; Lymphocytes % 21.9; MCH 28.6 pg (27.0-33.0); MCHC 31.9 % (32.0-36.0); MCV 90 fL (80-95); MPV 9.4 fL (8.0-11.0); Neutrophils % 63.6; Platelet Count 307 10^3/uL (130-400); RBC 5.77 10^6/uL (4.36-5.78); RDW 17.3 % (11.8-14.1); RDW-SD 56.3 fL; WBC 12.45 10^3/uL (4.4-10.8)
[2022-12-31 17:21] LABS: Absolute Monocyte Count 1.25 10^3/uL (0.1-0.8)
[2022-12-31 18:21] LABS: Anion Gap 10.1 mmol/L (3-11); BUN 32 mg/dL (7-18); CO2 28.9 mmol/L (21.0-32.0); CREATININE 1.7 mg/dL (0.70-1.30); Calcium 8.9 mg/dL (8.5-10.1); Chloride 99 mmol/L (98-107); Estimated GFR 44.46 (mL/min/1.73m2); Glucose 271 mg/dL (74-106); Potassium 4.7 mmol/L (3.5-5.1); Sodium 138 mmol/L (136-145)
== END 2022-12-31 18:56 | disposition home or self-care (01) ==
LOC: LBO 18:56
PROVIDERS: PCP Family Medicine; Visit Provider Nurse Practitioner Acute Care
DX: I50.9 Heart failure, unspecified (principal)
CPT/HCPCS: 36415; 80048; 85025